=== PATIENT | female | born 1960 | race American Indian/Alaskan Native ===

== ENCOUNTER 2017-03-05 11:22 | Emergency (ER) | payer OTHER, BC ==
[2017-03-05 11:22] VITALS: BMI 28.3
--- NOTE | 2017-03-05 12:26 | C.PDOC ---
History Of Present Illness 56 y/o female recently diagnosed with rheumatoid arthritis on Mobic past few days presents to the ED with complaints of increased joint pain. Today pt noted elevated blood pressure while at work. Denies fever, chills, chest pain, difficulty breathing or any other complaints. Time Seen by Provider: 03/05/17 11:55 Chief Complaint (Nursing): High Blood Pressure History Per: Patient History/Exam Limitations: no limitations Onset/Duration Of Symptoms: Days Current Symptoms Are (Timing): Worse Severity: Mild Recent travel outside of the [place]: No Past Medical History Reviewed: Historical Data, Nursing Documentation, Vital Signs Vital Signs: Last Vital Signs Temp 98.1 F 03/05/17 12:45 Pulse 74 03/05/17 12:45 Resp 18 03/05/17 12:45 BP 169/99 H 03/05/17 12:45 Pulse Ox 98 03/05/17 13:41 - Medical History PMH: Anemia (with transfusion), Anxiety, Arthritis, Asthma (In the Past), Depression, Diabetes, Gastritis, HTN, Hypercholesterolemia, Post Traumatic Stress Disorder Surgical History: Endoscopy - [facility] Procedures CYSTOSCOPY NEC (12/14/13) DX ULTRASOUND-HEART (09/20/14) MONITORING NOS (12/02/97) INSPECTION OF ABDOMINAL WALL, PERC ENDO APPROACH (10/15/15) LAPAROSCOP LYSIS-PERITONEAL ADHES (12/30/13) LAPAROSCOP REMOVE OVARIES/TUBES (12/30/13) LAPAROSCOPIC ROBOTIC ASSISTED PROCEDURE (12/30/13) LEFT HEART CARDIAC CATH (06/24/14) LOW CERVICAL (12/02/97) LT HEART ANGIOCARDIOGRAM (06/24/14) MEDICATION MANAGEMENT (12/10/16) RELEASE LARGE INTESTINE, OPEN APPROACH (10/15/15) RELEASE PERITONEUM, OPEN APPROACH (10/15/15) REMOVAL OF EXTRALUMINAL DEVICE FROM STOMACH, OPEN APPROACH (10/15/15) RETROGRADE PYELOGRAM (12/14/13) UTERINE LES DESTRUCT NEC (12/02/97) Family History: States: Unknown Family Hx, Diabetes - Social History Hx Tobacco Use: No Hx Alcohol Use: No Hx Substance Use: No - Immunization History Hx Tetanus Toxoid Vaccination: No Hx Influenza Vaccination: Yes Hx Pneumococcal Vaccination: No Review Of Systems Except As Marked, All Systems Reviewed And Found Negative. Constitutional: Negative for: Fever, Chills Cardiovascular: Negative for: Chest Pain Respiratory: Negative for: Shortness of Breath Musculoskeletal: Positive for: Other (increased generalized joint pain) Physical Exam - Physical Exam Appears: Non-toxic, No Acute Distress Skin: Warm, Dry, No Diaphoretic, No Rash Head: Atraumatic, Normacephalic Neck: Normal, Normal ROM, Supple Chest: Symmetrical Cardiovascular: Rhythm Regular, No Murmur Respiratory: Normal Breath Sounds, No Rales, No Rhonchi, No Wheezing Gastrointestinal/Abdominal: Normal Exam, Soft, No Tenderness Extremity: Normal ROM Neurological/Psych: Oriented x3, Normal Speech, Normal Cognition ED Course And Treatment O2 Sat by Pulse Oximetry: 98 (room air) Pulse Ox Interpretation: Normal Progress Note: Plan: EKG, prednisone. Discharged home with Medrol dose pack. Instructed to follow up with PMD in 2-3 days. Medical Decision Making Medical Decision Making: sympt c/w flair of RA pt only on mobic seeing a rhum but did not start on DMD Plan after discussion with pt short course of steroids early f/u PCP Disposition Counseled Patient/Family Regarding: Diagnosis, Need For Followup - Disposition Referrals: Sacha Lock [Staff Provider] - Disposition: HOME/ ROUTINE Disposition Time: 12:23 Condition: GOOD Prescriptions: Methylprednisolone [Medrol Dose Pack (21 tabs)] 1 kit PO . DIRECTED #21 packet Instructions: Rheumatoid Arthritis (ED) Forms: Work Excuse - Clinical Impression Clinical Impression: Rheumatoid arthritis flare - Scribe Statement The provider has reviewed the documentation as recorded by the Hima Guerrero Provider Attestation: All medical record entries made by the Hima were at my direction and personally dictated by me. I have reviewed the chart and agree that the record accurately reflects my personal performance of the history, physical exam, medical decision making, and the department course for this patient. I have also personally directed, reviewed, and agree with the discharge instructions and disposition.
[2017-03-05 13:11] VITALS: BP 169/99; PULSE 74; RESP 18; TEMP 98.1
[2017-03-05 13:39] VITALS: O2SAT 98
== END 2017-03-05 12:45 | disposition home or self-care (01) ==
LOC: C.ER 11:22
DX: M06.9 Rheumatoid arthritis, unspecified (principal)

== ENCOUNTER 2017-03-19 15:14 | Inpatient (IN) | payer OTHER, BC ==
[2017-03-19 15:14] VITALS: BMI 28.3
[2017-03-19] MEDS ORDERED: Aspirin 325 mg EC Tablets PO STA (15:52)
[2017-03-19] MEDS ORDERED: Alum-Mag Hydrox-Simethicone Susp (30 mL) PO STA (15:53)
[2017-03-19] MEDS ORDERED: Aluminum Hydroxide/Magnesium Hydroxide Susp (30 mL) ONE (15:58)
[2017-03-19 16:21] LABS: BASO % 0.7 % (0.0-2.0); EOS # 0.3 K/uL (0.0-0.7); EOS % 4.4 % (0.0-4.0); HEMOGLOBIN 12.3 g/dL (11.0-16.0); LYMPH # 1.5 K/uL (1.0-4.3); LYMPH % 25.7 % (20.0-40.0); MEAN CORPUSCULAR HEMOGLOBIN 26.9 pg (27.0-31.0); MEAN CORPUSCULAR HGB CONC 32.3 g/dL (33.0-37.0); MEAN PLATELET VOLUME 8.5 fL (7.2-11.7); MONO # 0.5 K/uL (0.0-0.8); MONO % 9.2 % (0.0-10.0); NEUT # 3.6 K/uL (1.8-7.0); RBC 4.56 Mil/uL (3.80-5.20); RED CELL DISTRIBUTION WIDTH 14.5 % (11.5-14.5); WHITE BLOOD COUNT 5.9 K/uL (4.8-10.8)
[2017-03-19 16:23] LABS: MEAN CELL VOLUME 83.4 fL (81.0-99.0)
[2017-03-19 16:29] LABS: INR 0.9; PROTHROMBIN TIME 10.2 SECONDS (9.7-12.2)
[2017-03-19 16:47] LABS: AST/SGOT 28 U/L (14-36); GFR AFRICAN-AMERICAN > 60; GFR NON-AFRICAN AMERICAN > 60
[2017-03-19 16:48] LABS: ALB/GLOB RATIO 1.1 (1.0-2.1); ALT/SGPT 22 U/L (9-52); BLOOD UREA NITROGEN 15 mg/dL (7-17); CALCIUM 9.1 mg/dl (8.6-10.4); LIPASE 71 U/L (23-300)
[2017-03-19 16:59] LABS: CK-MB 0.55 ng/mL (0.0-3.38)
--- NOTE | 2017-03-19 17:28 | RAD ---
PROCEDURE: CHEST RADIOGRAPH, 1 VIEW HISTORY: chest pain COMPARISON: 11/23/2016 FINDINGS: LUNGS: Clear. PLEURA: No pneumothorax or pleural fluid seen. CARDIOVASCULAR: Normal. OSSEOUS STRUCTURES: No significant abnormalities. VISUALIZED UPPER ABDOMEN: Normal. OTHER FINDINGS: None. IMPRESSION: No active disease.
[2017-03-19] MEDS ORDERED: (Novolin R) Insulin Human Regular 100 units/ml vial IV ONE (18:35)
--- NOTE | 2017-03-19 19:29 | C.PDOC ---
Time Seen by Provider: 03/19/17 15:41 Chief Complaint (Nursing): Chest Pain History Per: Patient Onset/Duration Of Symptoms: Hrs (since this morning) Current Symptoms Are (Timing): Still Present Severity: Moderate Quality: Burning, Pressure, "Pain" Modifying Factors: Other Indicated Below Alleviating Factors: None Additional History Per: Prior Records Past Medical History Reviewed: Historical Data, Nursing Documentation, Vital Signs Vital Signs: Last Vital Signs Temp 97.8 F 03/19/17 15:32 Pulse 83 03/19/17 15:32 Resp 17 03/19/17 15:32 BP 174/97 H 03/19/17 15:32 Pulse Ox 99 03/19/17 15:32 - Medical History PMH: Anemia (with transfusion), Anxiety, Arthritis, Asthma (In the Past), Depression, Diabetes, Gastritis, HTN, Hypercholesterolemia, Post Traumatic Stress Disorder, TIA (Questionable AUG 2014) Surgical History: Coronary Stent (2), Endoscopy - [facility] Procedures CYSTOSCOPY NEC (12/14/13) DX ULTRASOUND-HEART (09/20/14) MONITORING NOS (12/02/97) INSPECTION OF ABDOMINAL WALL, PERC ENDO APPROACH (10/15/15) LAPAROSCOP LYSIS-PERITONEAL ADHES (12/30/13) LAPAROSCOP REMOVE OVARIES/TUBES (12/30/13) LAPAROSCOPIC ROBOTIC ASSISTED PROCEDURE (12/30/13) LEFT HEART CARDIAC CATH (06/24/14) LOW CERVICAL (12/02/97) LT HEART ANGIOCARDIOGRAM (06/24/14) MEDICATION MANAGEMENT (12/10/16) RELEASE LARGE INTESTINE, OPEN APPROACH (10/15/15) RELEASE PERITONEUM, OPEN APPROACH (10/15/15) REMOVAL OF EXTRALUMINAL DEVICE FROM STOMACH, OPEN APPROACH (10/15/15) RETROGRADE PYELOGRAM (12/14/13) UTERINE LES DESTRUCT NEC (12/02/97) Family History: States: Unknown Family Hx, Diabetes - Social History Hx Tobacco Use: No Hx Alcohol Use: No Hx Substance Use: No - Immunization History Hx Tetanus Toxoid Vaccination: No Hx Influenza Vaccination: Yes (2015) Hx Pneumococcal Vaccination: No Review Of Systems Except As Marked, All Systems Reviewed And Found Negative. Constitutional: Negative for: Fever, Weakness Cardiovascular: Positive for: Chest Pain Respiratory: Negative for: Shortness of Breath, Hemoptysis Gastrointestinal: Negative for: Vomiting, Abdominal Pain Musculoskeletal: Negative for: Neck Pain, Back Pain, Leg Pain Skin: Negative for: Rash Neurological: Negative for: Weakness, Numbness, Seizures Physical Exam - Physical Exam Appears: Non-toxic, No Acute Distress Skin: Normal Color, Warm, Dry, No Rash Head: Atraumatic, Normacephalic Eye(s): bilateral: PERRL, EOMI Neck: Normal ROM, Supple Chest: Symmetrical, No Deformity Cardiovascular: Rhythm Regular Respiratory: Normal Breath Sounds, No Accessory Muscle Use Gastrointestinal/Abdominal: Soft, No Tenderness Back: No CVA Tenderness Extremity: Normal ROM, No Calf Tenderness Neurological/Psych: Oriented x3, Normal Motor, Normal Sensation ED Course And Treatment - Laboratory Results Result Diagrams: 03/19/17 16:16 03/19/17 16:16 Lab Interpretation: Abnormal Interpretation Of Abnormal: Hyperglycemia ECG: Interpreted By Me, Viewed By Me ECG Rhythm: Sinus Rhythm, Nonspecific Changes ECG Interpretation: Abnormal Interpretation Of ECG: LVH Rate From EC O2 Sat by Pulse Oximetry: 99 Pulse Ox Interpretation: Normal - Radiology CXR: Viewed By Me, Read By Radiologist CXR Interpretation: Yes: No Acute Disease - Physician Consult Information Physician Contacted: Srikanth Winston (PMD) Outcome Of Conversation: He states that he will be away and wants pt admitted on Dr. Liu's service. Progress - Interventions Interventions:: Observation, Oxygen - Medications Administered Oral: Antacid, Aspirin Intravenous: H-2 hoang - Data Reviewed Data Reviewed: Lab, Diagnostic imaging, EKG, Old records - Patient Status Patient status: Partially improved - Continuity of Care Discussed patient case with:: Patient, ED Nurse, PMD Discussed pt. case with outreach consultant/specialty: Cardiology Disposition Discussed With : Mariano Oakes Comment: He accepted pt on his service. Counseled Patient/Family Regarding: Studies Performed, Diagnosis - Disposition Disposition: HOSPITALIZED Disposition Time: 19:34 Condition: FAIR - POA Present On Arrival: Poor Glycemic Control - Clinical Impression Clinical Impression: Chest pain, Uncontrolled diabetes mellitus
[2017-03-19] MEDS ORDERED: (Novolin R) Insulin Human Regular 100 units/ml vial ONE (20:27)
[2017-03-19] MEDS ORDERED: Insulin Detemir 100 units/ml Vial (Levemir) SC SCH (22:00)
[2017-03-19] MEDS ORDERED: (Novolin R) Insulin Human Regular 100 units/ml vial SC SCH (22:00)
[2017-03-20] MEDS ORDERED: (Novolog Mix 70/30) Insulin Aspart/Insulin Aspar 100 units/ml SC SCH (07:30)
[2017-03-20 08:19] LABS: ALBUMIN 3.4 g/dL (3.5-5.0)
[2017-03-20 08:21] LABS: GFR AFRICAN-AMERICAN > 60; GFR NON-AFRICAN AMERICAN > 60
[2017-03-20 08:22] LABS: ALB/GLOB RATIO 1.1 (1.0-2.1); ALT/SGPT 20 U/L (9-52); AST/SGOT 18 U/L (14-36); BLOOD UREA NITROGEN 15 mg/dL (7-17)
[2017-03-20 08:23] LABS: HDL CHOLESTEROL 35 mg/dL (30-70)
[2017-03-20 08:33] LABS: LDL CHOLESTEROL 141 mg/dL (0-129)
[2017-03-20] MEDS: (Novolog) Insulin Aspart, Recombinant 100 u/ml 10 ml vial SC SCH ×7 (08:35→22:17)
--- NOTE | 2017-03-20 11:22 | CARD ---
APPROVED REPORT EKG Measurement Heart [id number] <Conclusion> Normal sinus rhythm Voltage criteria for left ventricular hypertrophy Abnormal ECG
[2017-03-20] MEDS: Enoxaparin 40 mg Syringe SC SCH (11:38)
--- NOTE | 2017-03-20 16:14 | CP.PCM.HP ---
History of Present Illness - History of Present Illness History of Present Illness: 56 y/o female h/o HTN, DM presented with retrosternal c/p burning in character No SOb, dizziness No cough, fever or chills Present on Admission - Present on Admission Any Indicators Present on Admission: No History of DVT/PE: No History of Uncontrolled Diabetes: Yes Urinary Catheter: No Decubitus Ulcer Present: No Review of Systems - Cardiovascular Cardiovascular: Chest Pain Past Patient History - Infectious Disease Hx of Infectious Diseases: None (Htn, DM, esophagitis, Depression) - Tetanus Immunizations Tetanus Immunization: Unknown - Past Medical History & Family History Past Medical History?: Yes - Past Social History Smoking Status: Never Smoked - CARDIAC Hx Cardiac Disorders: Yes Hx Hypercholesterolemia: Yes Hx Hypertension: Yes - PULMONARY Hx Respiratory Disorders: Yes Hx Asthma: Yes (In the Past) - NEUROLOGICAL Hx Neurological Disorder: Yes Hx Transient Ischemic Attacks (TIA): Yes (Questionable AUG 2014) - HEENT Hx HEENT Problems: No - RENAL Hx Chronic Kidney Disease: No - ENDOCRINE/METABOLIC Hx Endocrine Disorders: Yes (SEE COMMENT) Hx Diabetes Mellitus Type 1: Yes Hx Systemic Lupus Erythematosus: Yes Other/Comment: thyroid nodule right side - HEMATOLOGICAL/ONCOLOGICAL Hx Blood Disorders: Yes Hx Anemia: Yes (with transfusion) - INTEGUMENTARY Hx Dermatological Problems: No - MUSCULOSKELETAL/RHEUMATOLOGICAL Hx Musculoskeletal Disorders: Yes Hx Arthritis: Yes Hx Falls: No - GASTROINTESTINAL Hx Gastrointestinal Disorders: Yes Hx Gastritis: Yes - GENITOURINARY/GYNECOLOGICAL Hx Genitourinary Disorders: No Hx Sexually Transmitted Disorders: No - PSYCHIATRIC Hx Psychophysiologic Disorder: Yes Hx Anxiety: Yes Hx Depression: Yes Hx Post Traumatic Stress Disorder: Yes Hx Substance Use: No - SURGICAL HISTORY Hx Surgeries: Yes Hx Coronary Stent: Yes (2) - ANESTHESIA Hx Anesthesia: Yes Hx Anesthesia Reactions: Yes (difficulty awakening,combative) Hx Malignant Hyperthermia: No Has any member of the family had a problem w/ anesthesia?: No Meds Allergies/Adverse Reactions: Allergies Allergy/AdvReac Type Severity Reaction Status Date / Time acetaminophen [From Percocet] AdvReac Intermediate VOMITING Verified 03/05/17 11 :27 oxycodone HCl [From Percocet] AdvReac Intermediate VOMITING Verified 03/19/17 15 :31 Physical Exam - Constitutional Appears: Well - Head Exam Head Exam: ATRAUMATIC, NORMAL INSPECTION, NORMOCEPHALIC - Eye Exam Eye Exam: EOMI, Normal appearance (unrearkable) - Neck Exam Neck exam: Positive for: Normal Inspection - Respiratory Exam Respiratory Exam: NORMAL BREATHING PATTERN - Cardiovascular Exam Cardiovascular Exam: REGULAR RHYTHM - GI/Abdominal Exam GI & Abdominal Exam: Soft - Extremities Exam Extremities exam: Positive for: normal inspection Results - Vital Signs Recent Vital Signs: Last Vital Signs Temp 98.1 F 03/20/17 15:59 Pulse 83 03/20/17 15:59 Resp 18 03/20/17 15:59 BP 132/82 03/20/17 15:59 Pulse Ox 97 03/20/17 15:59 - Labs Result Diagrams: 03/19/17 16:16 03/20/17 07:52 Labs: Laboratory Results - last 24 hr 03/19/17 03/20/17 03/20/17 21:25 06:26 07:52 Sodium 139 Potassium 3.8 Chloride 100 Carbon Dioxide 31 H Anion Gap 12 BUN 15 Creatinine 0.8 Est GFR ( Amer) > 60 Est GFR (Non-Af Amer) > 60 POC Glucose (mg/dL) 277 H 300 H Random Glucose 333 H Hemoglobin A1c Calcium 9.0 Total Bilirubin 0.6 AST 18 ALT 20 Alkaline Phosphatase 103 Troponin I Total Protein 6.6 Albumin 3.4 L Globulin 3.2 Albumin/Globulin Ratio 1.1 Triglycerides 217 H Cholesterol 223 H LDL Cholesterol Direct 141 H HDL Cholesterol 35 TSH 3rd Generation 0.28 L 03/20/17 03/20/17 03/20/17 07:52 11:11 15:10 Sodium Potassium Chloride Carbon Dioxide Anion Gap BUN Creatinine Est GFR ( Amer) Est GFR (Non-Af Amer) POC Glucose (mg/dL) 402 H* Random Glucose Hemoglobin A1c 13.2 H Calcium Total Bilirubin AST ALT Alkaline Phosphatase Troponin I < 0.0120 Total Protein Albumin Globulin Albumin/Globulin Ratio Triglycerides Cholesterol LDL Cholesterol Direct HDL Cholesterol TSH 3rd Generation Assessment & Plan - Assessment and Plan (Free Text) Assessment: Chest pain , VT was R/O HTN Uncontrolled DM Plan: Cont. current Med. Endo and GI consult NB. Dictation system is down which limits my narrative of this H&P EKGs and labs were reviewed
--- NOTE | 2017-03-20 18:34 | CP.PCM.CON ---
History of Present Illness - History of Present Illness History of Present Illness: CC: Chest pain HPI: year old woman admitted with burning chest pain and anorexia. On Dexilant for chronic reflux. EGD in [place] by Dr Valerio Jun 2016 showed esophagitis( [place]) on exam but not present on biopsies. Gastric emptying study normal in November 2016. Frequent episodes of atypical chest pains over the years. Review of Systems - Constitutional Constitutional: Anorexia, Daytime Sleepiness - Cardiovascular Cardiovascular: Chest Pain, Chest Pain at Rest. absent: Dyspnea - Respiratory Respiratory: absent: Cough - Gastrointestinal Gastrointestinal: Heartburn. absent: Change in Stool Character, Dysphagia, Melena - Genitourinary Genitourinary: absent: Difficulty Urinating Past Patient History - Infectious Disease Hx of Infectious Diseases: None (Htn, DM, esophagitis, Depression) - Tetanus Immunizations Tetanus Immunization: Unknown - Past Medical History & Family History Past Medical History?: Yes - Past Social History Smoking Status: Never Smoked - CARDIAC Hx Cardiac Disorders: Yes Hx Hypercholesterolemia: Yes Hx Hypertension: Yes - PULMONARY Hx Respiratory Disorders: Yes Hx Asthma: Yes (In the Past) - NEUROLOGICAL Hx Neurological Disorder: Yes Hx Transient Ischemic Attacks (TIA): Yes (Questionable AUG 2014) - HEENT Hx HEENT Problems: No - RENAL Hx Chronic Kidney Disease: No - ENDOCRINE/METABOLIC Hx Endocrine Disorders: Yes (SEE COMMENT) Hx Diabetes Mellitus Type 1: Yes Hx Systemic Lupus Erythematosus: Yes Other/Comment: thyroid nodule right side - HEMATOLOGICAL/ONCOLOGICAL Hx Blood Disorders: Yes Hx Anemia: Yes (with transfusion) - INTEGUMENTARY Hx Dermatological Problems: No - MUSCULOSKELETAL/RHEUMATOLOGICAL Hx Musculoskeletal Disorders: Yes Hx Arthritis: Yes Hx Falls: No - GASTROINTESTINAL Hx Gastrointestinal Disorders: Yes Hx Gastritis: Yes - GENITOURINARY/GYNECOLOGICAL Hx Genitourinary Disorders: No Hx Sexually Transmitted Disorders: No - PSYCHIATRIC Hx Psychophysiologic Disorder: Yes Hx Anxiety: Yes Hx Depression: Yes Hx Post Traumatic Stress Disorder: Yes Hx Substance Use: No - SURGICAL HISTORY Hx Surgeries: Yes Hx Coronary Stent: Yes (2) - ANESTHESIA Hx Anesthesia: Yes Hx Anesthesia Reactions: Yes (difficulty awakening,combative) Hx Malignant Hyperthermia: No Has any member of the family had a problem w/ anesthesia?: No Meds Allergies/Adverse Reactions: Allergies Allergy/AdvReac Type Severity Reaction Status Date / Time acetaminophen [From Percocet] AdvReac Intermediate VOMITING Verified 03/05/17 11 :27 oxycodone HCl [From Percocet] AdvReac Intermediate VOMITING Verified 03/19/17 15 :31 - Medications Medications: Current Medications Amlodipine Besylate (Norvasc) 5 mg PO DAILY [facility] Last Admin: 03/20/17 11:39 Dose: 5 mg Enoxaparin Sodium (Lovenox) 40 mg SC DAILY [facility] Last Admin: 03/20/17 11:38 Dose: 40 mg Insulin Aspart (Novolog) 0 unit SC [facility] PRN Reason: Protocol Last Admin: 03/20/17 17:08 Dose: Not Given Insulin Aspart (Novolog) 20 unit SC AC [facility] Last Admin: 03/20/17 17:08 Dose: 20 unit Insulin Detemir (Levemir) 44 unit SC HS [facility] Lorazepam (Ativan) 0.5 mg PO COUNTS INCLUDE 234 BEDS AT [facility] Last Admin: 03/20/17 11:38 Dose: 0.5 mg Losartan Potassium (Cozaar) 100 mg PO DAILY [facility] Last Admin: 03/20/17 11:38 Dose: 100 mg Pneumococcal Polyvalent Vaccine (Pneumovax 23 Vaccine) 0.5 ml IM .ONCE ONE Stop: 03/22/17 10:01 Pregabalin (Lyrica) 100 mg PO [facility] Last Admin: 03/19/17 22:15 Dose: 100 mg Rosuvastatin Calcium (Crestor) 5 mg PO [facility] Last Admin: 03/19/17 22:15 Dose: 5 mg Zolpidem Tartrate (Ambien) 5 mg PO [facility] Last Admin: 03/19/17 22:15 Dose: 5 mg Physical Exam - Constitutional Appears: Well, No Acute Distress Additional comments: Lethargic - Head Exam Head Exam: ATRAUMATIC, NORMOCEPHALIC - Eye Exam Eye Exam: Normal appearance. absent: Scleral icterus - ENT Exam ENT Exam: Normal Exam - Neck Exam Neck exam: Positive for: Normal Inspection. Negative for: Thyromegaly - Respiratory Exam Respiratory Exam: Clear to Auscultation Bilateral - Cardiovascular Exam Cardiovascular Exam: REGULAR RHYTHM - GI/Abdominal Exam GI & Abdominal Exam: Soft. absent: Distended, Guarding, Mass, Organomegaly, Tenderness - Extremities Exam Extremities exam: Positive for: normal inspection - Neurological Exam Additional comments: Lethargic but arousable - Skin Skin Exam: Normal Color Results - Vital Signs Recent Vital Signs: Last Vital Signs Temp 98.1 F 03/20/17 15:59 Pulse 83 03/20/17 15:59 Resp 18 03/20/17 15:59 BP 132/82 03/20/17 15:59 Pulse Ox 97 03/20/17 15:59 - Labs Result Diagrams: 03/19/17 16:16 03/20/17 07:52 Labs: Laboratory Results - last 24 hr 03/19/17 03/20/17 03/20/17 21:25 06:26 07:52 Sodium 139 Potassium 3.8 Chloride 100 Carbon Dioxide 31 H Anion Gap 12 BUN 15 Creatinine 0.8 Est GFR ( Amer) > 60 Est GFR (Non-Af Amer) > 60 POC Glucose (mg/dL) 277 H 300 H Random Glucose 333 H Hemoglobin A1c Calcium 9.0 Total Bilirubin 0.6 AST 18 ALT 20 Alkaline Phosphatase 103 Troponin I Total Protein 6.6 Albumin 3.4 L Globulin 3.2 Albumin/Globulin Ratio 1.1 Triglycerides 217 H Cholesterol 223 H LDL Cholesterol Direct 141 H HDL Cholesterol 35 TSH 3rd Generation 0.28 L 03/20/17 03/20/17 03/20/17 07:52 11:11 15:10 Sodium Potassium Chloride Carbon Dioxide Anion Gap BUN Creatinine Est GFR ( Amer) Est GFR (Non-Af Amer) POC Glucose (mg/dL) 402 H* Random Glucose Hemoglobin A1c 13.2 H Calcium Total Bilirubin AST ALT Alkaline Phosphatase Troponin I < 0.0120 Total Protein Albumin Globulin Albumin/Globulin Ratio Triglycerides Cholesterol LDL Cholesterol Direct HDL Cholesterol TSH 3rd Generation 03/20/17 16:34 Sodium Potassium Chloride Carbon Dioxide Anion Gap BUN Creatinine Est GFR ( Amer) Est GFR (Non-Af Amer) POC Glucose (mg/dL) 185 H Random Glucose Hemoglobin A1c Calcium Total Bilirubin AST ALT Alkaline Phosphatase Troponin I Total Protein Albumin Globulin Albumin/Globulin Ratio Triglycerides Cholesterol LDL Cholesterol Direct HDL Cholesterol TSH 3rd Generation Assessment & Plan (1) Chest pain Assessment and Plan: Atypical chest pain, likely emotional/functional pain, but nonetheless recommend covering for reflux with PPI. Cardiology to decide on whether further workup for chest pain is needed Advance diet as tolerated. Status: Acute
[2017-03-20] MEDS: Insulin Detemir 100 units/ml Vial (Levemir) SC SCH (22:16)
[2017-03-21] MEDS: (Novolog) Insulin Aspart, Recombinant 100 u/ml 10 ml vial SC SCH ×7 (08:11→21:26)
[2017-03-21] MEDS: Enoxaparin 40 mg Syringe SC SCH (09:28)
--- NOTE | 2017-03-21 11:45 | CP.PCM.PN ---
Subjective - Date & Time of Evaluation Date of Evaluation: 03/21/17 Time of Evaluation: 11:20 - Subjective Subjective: F/u CP. Pt is sleepy. Reports feeling better. No CP Denies CP, SOB, fever, chills, SZ, LOC, LOVE, cough, hematuria, hemoptysis Objective - Vital Signs/Intake and Output Vital Signs (last 24 hours): Temp Pulse Resp BP Pulse Ox 98.5 F 74 20 155/85 H 96 03/21/17 04:48 03/21/17 08:31 03/21/17 04:48 03/21/17 04:48 03/20/17 23:40 Intake and Output: 03/21/17 03/21/17 06:59 18:59 Intake Total 300 Balance 300 - Medications Medications: Current Medications Amlodipine Besylate (Norvasc) 5 mg PO DAILY [facility] Last Admin: 03/21/17 09:28 Dose: 5 mg Enoxaparin Sodium (Lovenox) 40 mg SC DAILY [facility] Last Admin: 03/21/17 09:28 Dose: 40 mg Insulin Aspart (Novolog) 0 unit SC [facility] PRN Reason: Protocol Last Admin: 03/21/17 08:11 Dose: Not Given Insulin Aspart (Novolog) 20 unit SC AC [facility] Last Admin: 03/21/17 08:15 Dose: 20 unit Insulin Detemir (Levemir) 44 unit SC [facility] Last Admin: 03/20/17 22:16 Dose: 44 unit Lorazepam (Ativan) 0.5 mg PO [facility] Last Admin: 03/21/17 09:28 Dose: 0.5 mg Losartan Potassium (Cozaar) 100 mg PO DAILY [facility] Last Admin: 03/21/17 09:28 Dose: 100 mg Pneumococcal Polyvalent Vaccine (Pneumovax 23 Vaccine) 0.5 ml IM .ONCE ONE Stop: 03/22/17 10:01 Pregabalin (Lyrica) 100 mg PO [facility] Last Admin: 03/20/17 22:16 Dose: 100 mg Rosuvastatin Calcium (Crestor) 5 mg PO [facility] Last Admin: 03/20/17 22:16 Dose: 5 mg Zolpidem Tartrate (Ambien) 5 mg PO [facility] Last Admin: 03/20/17 22:16 Dose: 5 mg - Labs Labs: 03/20/17 07:52 PT 10.2 SECONDS (9.7-12.2) 03/19/17 16:16 INR 0.9 03/19/17 16:16 APTT 33 SECONDS (21-34) 03/19/17 16:16 - Constitutional Appears: Well - Neck Exam Neck Exam: absent: Tenderness - Respiratory Exam Respiratory Exam: Clear to Ausculation Bilateral - Cardiovascular Exam Cardiovascular Exam: RRR - GI/Abdominal Exam GI & Abdominal Exam: Normal Bowel Sounds - Neurological Exam Neurological Exam: Alert, Awake, Oriented x3 Assessment and Plan (1) Chest pain Assessment & Plan: Atypical. Consider GERD. But is feeling better. Consider PPI. Consider outpatient esoph manometry. Status: Acute (2) Uncontrolled diabetes mellitus Status: Acute (3) Abdominal pain Assessment & Plan: GAstritis. DM. Status: Acute (4) Anemia Status: Acute (5) Depression Status: Acute
--- NOTE | 2017-03-21 14:49 | CP.PCM.PN ---
Subjective - Date & Time of Evaluation Date of Evaluation: 03/21/17 Time of Evaluation: 14:47 - Subjective Subjective: no Chest pain or SOB Seen by GI today and yesterday Was upset and received Ativan Objective - Vital Signs/Intake and Output Vital Signs (last 24 hours): Temp Pulse Resp BP Pulse Ox 98.5 F 74 20 155/85 H 96 03/21/17 04:48 03/21/17 08:31 03/21/17 04:48 03/21/17 04:48 03/20/17 23:40 Intake and Output: 03/21/17 03/21/17 06:59 18:59 Intake Total 300 Balance 300 - Medications Medications: Current Medications Amlodipine Besylate (Norvasc) 5 mg PO DAILY [facility] Last Admin: 03/21/17 09:28 Dose: 5 mg Enoxaparin Sodium (Lovenox) 40 mg SC DAILY [facility] Last Admin: 03/21/17 09:28 Dose: 40 mg Insulin Aspart (Novolog) 0 unit SC [facility] PRN Reason: Protocol Last Admin: 03/21/17 12:05 Dose: Not Given Insulin Aspart (Novolog) 20 unit SC AC [facility] Last Admin: 03/21/17 12:05 Dose: 20 unit Insulin Detemir (Levemir) 44 unit SC HS [facility] Last Admin: 03/20/17 22:16 Dose: 44 unit Lorazepam (Ativan) 0.5 mg PO [facility] Last Admin: 03/21/17 09:28 Dose: 0.5 mg Losartan Potassium (Cozaar) 100 mg PO DAILY [facility] Last Admin: 03/21/17 09:28 Dose: 100 mg Pneumococcal Polyvalent Vaccine (Pneumovax 23 Vaccine) 0.5 ml IM .ONCE ONE Stop: 03/22/17 10:01 Pregabalin (Lyrica) 100 mg PO [facility] Last Admin: 03/20/17 22:16 Dose: 100 mg Rosuvastatin Calcium (Crestor) 5 mg PO [facility] Last Admin: 03/20/17 22:16 Dose: 5 mg Zolpidem Tartrate (Ambien) 5 mg PO HS [facility] Last Admin: 03/20/17 22:16 Dose: 5 mg - Labs Labs: 03/20/17 07:52 PT 10.2 SECONDS (9.7-12.2) 03/19/17 16:16 INR 0.9 03/19/17 16:16 APTT 33 SECONDS (21-34) 03/19/17 16:16 - Head Exam Head Exam: ATRAUMATIC, NORMAL INSPECTION, NORMOCEPHALIC - Eye Exam Pupil Exam: NORMAL ACCOMODATION - Respiratory Exam Respiratory Exam: NORMAL BREATHING PATTERN - Cardiovascular Exam Cardiovascular Exam: REGULAR RHYTHM - GI/Abdominal Exam GI & Abdominal Exam: Normal Bowel Sounds - Extremities Exam Extremities Exam: Normal Inspection Assessment and Plan - Assessment and Plan (Free Text) Assessment: chest pain , DC ruled out HTN Uncontrolled DM Depression GERD Plan: Cont. Amlodipine Besylate (Norvasc) 5 mg PO DAILY [facility] Last Admin: 03/21/17 09:28 Dose: 5 mg Enoxaparin Sodium (Lovenox) 40 mg SC DAILY [facility] Last Admin: 03/21/17 09:28 Dose: 40 mg Insulin Aspart (Novolog) 0 unit SC [facility] PRN Reason: Protocol Last Admin: 03/21/17 12:05 Dose: Not Given Insulin Aspart (Novolog) 20 unit SC [facility] Last Admin: 03/21/17 12:05 Dose: 20 unit Insulin Detemir (Levemir) 44 unit SC [facility] Last Admin: 03/20/17 22:16 Dose: 44 unit Lorazepam (Ativan) 0.5 mg PO [facility] Last Admin: 03/21/17 09:28 Dose: 0.5 mg Losartan Potassium (Cozaar) 100 mg PO DAILY [facility] Last Admin: 03/21/17 09:28 Dose: 100 mg Pneumococcal Polyvalent Vaccine (Pneumovax 23 Vaccine) 0.5 ml IM .ONCE ONE Stop: 03/22/17 10:01 Pregabalin (Lyrica) 100 mg PO [facility] Last Admin: 03/20/17 22:16 Dose: 100 mg Rosuvastatin Calcium (Crestor) 5 mg PO [facility] Last Admin: 03/20/17 22:16 Dose: 5 mg Zolpidem Tartrate (Ambien) 5 mg PO [facility] Last Admin: 03/20/17 22:16 Dose: 5 mg D/C tele
[2017-03-21 16:09] VITALS: TEMP 98.3; O2SAT 95
[2017-03-21] MEDS: Insulin Detemir 100 units/ml Vial (Levemir) SC SCH (21:38)
[2017-03-22] MEDS: (Novolog) Insulin Aspart, Recombinant 100 u/ml 10 ml vial SC SCH ×4 (07:26→12:57)
[2017-03-22 08:12] VITALS: BP 150/92; PULSE 92; RESP 20
[2017-03-22] MEDS: Enoxaparin 40 mg Syringe SC SCH (09:20)
[2017-03-22] MEDS ORDERED: Pneumococcal 23-Valent Vaccine IM ONE (10:00)
--- NOTE | 2017-03-22 11:47 | CP.PCM.DIS ---
Provider - Provider Date of Admission: 03/21/17 16:11 Attending physician: Mariano Oakes MD Primary care physician: Champ Consults: Tepler. Pierce Time Spent in preparation of Discharge (in minutes): 40 Diagnosis - Discharge Diagnosis (1) Chest pain Status: Acute (2) Uncontrolled diabetes mellitus Status: Acute Hospital Course - Lab Results Lab Results: Most Recent Lab Values WBC 5.9 K/uL (4.8-10.8) 03/19/17 16:16 RBC 4.56 Mil/uL (3.80-5.20) 03/19/17 16:16 Hgb 12.3 g/dL (11.0-16.0) 03/19/17 16:16 Hct 38.0 % (34.0-47.0) 03/19/17 16:16 MCV 83.4 fL (81.0-99.0) D 03/19/17 16:16 MCH 26.9 pg (27.0-31.0) L 03/19/17 16:16 MCHC 32.3 g/dL (33.0-37.0) L 03/19/17 16:16 RDW 14.5 % (11.5-14.5) 03/19/17 16:16 Plt Count 229 K/uL (130-400) 03/19/17 16:16 MPV 8.5 fL (7.2-11.7) 03/19/17 16:16 Neut % (Auto) 60.0 % (50.0-75.0) 03/19/17 16:16 Lymph % (Auto) 25.7 % (20.0-40.0) 03/19/17 16:16 [place] % (Auto) 9.2 % (0.0-10.0) 03/19/17 16:16 Eos % (Auto) 4.4 % (0.0-4.0) H 03/19/17 16:16 Baso % (Auto) 0.7 % (0.0-2.0) 03/19/17 16:16 Neut # 3.6 K/uL (1.8-7.0) 03/19/17 16:16 Lymph # 1.5 K/uL (1.0-4.3) 03/19/17 16:16 [place] # 0.5 K/uL (0.0-0.8) 03/19/17 16:16 Eos # 0.3 K/uL (0.0-0.7) 03/19/17 16:16 Baso # 0.0 K/uL (0.0-0.2) 03/19/17 16:16 PT 10.2 SECONDS (9.7-12.2) 03/19/17 16:16 INR 0.9 03/19/17 16:16 APTT 33 SECONDS (21-34) 03/19/17 16:16 Sodium 139 mmol/L (132-148) 03/20/17 07:52 Potassium 3.8 mmol/L (3.6-5.2) 03/20/17 07:52 Chloride 100 mmol/L (98-107) 03/20/17 07:52 Carbon Dioxide 31 mmol/L (22-30) H 03/20/17 07:52 Anion Gap 12 (10-20) 03/20/17 07:52 BUN 15 mg/dL (7-17) 03/20/17 07:52 Creatinine 0.8 MG/DL (0.7-1.2) 03/20/17 07:52 Est GFR ( Amer) > 60 03/20/17 07:52 Est GFR (Non-Af Amer) > 60 03/20/17 07:52 POC Glucose (mg/dL) 195 mg/dL (65-110) H 03/22/17 06:32 Random Glucose 333 mg/dL (65-105) H 03/20/17 07:52 Hemoglobin A1c 13.2 % (4.2-6.5) H 03/20/17 07:52 Calcium 9.0 mg/dl (8.6-10.4) 03/20/17 07:52 Total Bilirubin 0.6 mg/dL (0.2-1.3) 03/20/17 07:52 AST 18 U/L (14-36) 03/20/17 07:52 ALT 20 U/L (9-52) 03/20/17 07:52 Alkaline Phosphatase 103 U/L (38-126) 03/20/17 07:52 Total Creatine Kinase 129 U/L (30-135) 03/19/17 16:16 CK-MB (Mass) 0.55 ng/mL (0.0-3.38) 03/19/17 16:16 Troponin I < 0.0120 ng/mL (0.00-0.120) 03/20/17 15:10 Troponin I, Quant < 0.0120 ng/mL (0.00-0.120) 03/19/17 16:16 Total Protein 6.6 g/dL (6.3-8.3) 03/20/17 07:52 Albumin 3.4 g/dL (3.5-5.0) L 03/20/17 07:52 Globulin 3.2 gm/dL (2.2-3.9) 03/20/17 07:52 Albumin/Globulin Ratio 1.1 (1.0-2.1) 03/20/17 07:52 Triglycerides 217 mg/dL (0-149) H 03/20/17 07:52 Cholesterol 223 mg/dL (0-199) H 03/20/17 07:52 LDL Cholesterol Direct 141 mg/dL (0-129) H 03/20/17 07:52 HDL Cholesterol 35 mg/dL (30-70) 03/20/17 07:52 Lipase 71 U/L (23-300) 03/19/17 16:16 TSH 3rd Generation 0.28 mIU/L (0.46-4.68) L 03/20/17 07:52 Discharge Exam - Head Exam Head Exam: ATRAUMATIC, NORMAL INSPECTION, NORMOCEPHALIC Discharge Plan - Follow Up Plan Condition: FAIR Disposition: HOME/ ROUTINE
== END 2017-03-22 14:45 | disposition home or self-care (01) | DRG 313 ==
LOC: C.ER 15:14 → C.6T 19:34 → OBSVTOIN 03-21 16:11
PROVIDERS: ADMIT Specialist; ATTEND Specialist
DX: R07.9 Chest pain, unspecified (principal); E11.65 Type 2 diabetes mellitus with hyperglycemia; I10 Essential (primary) hypertension; K21.9 Gastro-esophageal reflux disease without esophagitis; D64.9 Anemia, unspecified; F32.9 Major depressive disorder, single episode, unspecified

== ENCOUNTER 2017-05-22 06:00 | Day surgery (SDC) | payer OTHER, BC ==
[2017-05-16 13:03] VITALS: BMI 28.1
[2017-05-22] MEDS ORDERED: Propofol 10 mg/ml Inj (20 ML) ONE (07:51)
[2017-05-22] MEDS ORDERED: Lactated Ringer's 1,000 ML IV ONE (08:00)
[2017-05-22] MEDS ORDERED: Bupivacaine HCl 0.25% PF (10 ml) Inj ONE (08:02)
[2017-05-22] MEDS ORDERED: EPINEPHrine 1:1000 Nasal Sol(30mL) ONE (08:10)
[2017-05-22] MEDS ORDERED: Vancomycin 1 g Inj ONE (08:10)
[2017-05-22] MEDS ORDERED: ceFAZolin IV 1 gm in Dextrose 1 GM/50 ML BAG IVPB ONE (08:43)
--- NOTE | 2017-05-22 08:53 | PCM.ANESB1 ---
Interscalene Block - Brachial Plexus Date of Procedure: 05/22/17 Anesthesiologist: Melissa Pre-Procedure Diagnosis: left olecranon bursa Post-Procedure Diagnosis: same Procedure Performed: Interscalene Block of Brachial Plexus Left ( supraclavicular block of brachial plexus left) - Procedure Interscalene Block of Brachial Plexus: This procedure was explained to the patient that it is for post-operative pain management. Consent was obtained after a thorough discussion with the patient regarding the benefits and possible complications of local anesthetic block of the Brachial Plexus at the supraclavicular area. The patient was brought to the Operating Room and standard monitors were applied. Time out was held with the circulating nurse to confirm the correct surgery and appropriate block. After applying Oxygen by nasal cannula and administering IV Sedation, the patient's head was gently rotated away from the left operative elbow. The ultrasound transducer was then applied to the skin in the transverse plane and the brachial plexus was visualized lateral to the carotid artery. After identification,the anterior lateral portion of the neck was prepped with chloraprep solution and 1mL of Lidocaine 2% was injected subcutaneously for topical analgesia. At this point, a # 22 gauge Stimuplex 2 inches insulated needle was inserted and directed in a caudal and midline direction. The needle was inserted lateral to the ultrasound transducer in-plane towards the brachial plexus in a lateral- to-medial direction. Needle advancement was performed carefully under constant direct ultrasound visualization. After repeated negative aspiration, 5cc of 0.25 % Bupivacaine were injected and this was followed with 25cc of 0.25% Bupivacaine. Under ultrasound guidance the local anesthetics were observed surrounding the roots of the brachial plexus. The needle was removed intact and sterile dressing was applied. The patient had stable vital signs, was conscious and in no apparent distress. The patient tolerated the supraclavicular block of the bracheal plexus well with stable vital signs and was prepared for subsequent surgery.
[2017-05-22] MEDS ORDERED: ePHEDrine 50 mg/ml Inj ONE (08:55)
[2017-05-22 11:35] VITALS: TEMP 97.8
[2017-05-22 13:47] VITALS: BP 137/77; PULSE 65; RESP 18; O2SAT 100
--- NOTE | 2017-05-22 20:43 | OP ---
PREOPERATIVE DIAGNOSIS: Olecranon bursitis of the left elbow with exostosis of the olecranon. POSTOPERATIVE DIAGNOSES: 1. Severe hypertrophic olecranon bursitis. 2. Exostosis of the olecranon process. PROCEDURE: 1. Olecranon bursectomy. 2. Excision of exostosis. 3. Introduction of vancomycin powder. 4. Application of a long-arm posterior splint. PROCEDURE: Prior to the procedure, risk and benefits of the surgery, problems, and complications were explained to the patient including reoccurrence, infection, wound dehiscence, need for future surgery, permanent weakness, permanent numbness, possible loss of life and limb etc. The patient has diabetes mellitus, and all the associated complications of diabetes mellitus. The surgery once again was reemphasized. The patient was brought to the operating room. The left elbow was identified as the elbow to be operated, was prepped and draped in a usual manner. The patient previously had a scalene block to provide further analgesia postoperatively. The pneumatic tourniquet was applied after prepping and draping the limb and exsanguinating the limb. Medial to the midline incision was made, dissection was carried down. Thick subcutaneous flaps were raised to a minimal degree just enough to get the exposure. Thick hypertrophic olecranon bursal tissue was seen. The entire tissue was demarcated proximally, distally, medially, and laterally, and the excision of the olecranon bursa was done. About 10 mL of blood stained fluid was evacuated. The bursa was excised in toto and keeping the triceps, aponeurosis attachment intact. At this point an exostosis was seen over the apex of the olecranon process and exostectomy was done with a rongeur and rasp was used to smoothen the bone. At this point, the wound was packed with epinephrine soaked sponges, tourniquet was released, minimal bleeding was noted, hemostasis was obtained and the subcutaneous tissue was closed to the periosteum there by obliterating the space. Vancomycin powder was then infiltrated into the joint and skin was closed with 3-O nylon suture. The patient tolerated the procedure well, left the operating room to the recovery room in satisfactory condition. The arm was placed in a long-arm posterior splint. Donya Linder MD
== END 2017-05-22 16:05 | disposition home or self-care (01) ==
LOC: C.SDS 06:00
PROVIDERS: ATTEND Orthopaedic Surgery
DX: M70.22 Olecranon bursitis, left elbow (principal); M89.9 Disorder of bone, unspecified
CPT/HCPCS: 24120; 82948; 88305; J0690; J2001; J2270; J2405; J2704; J2765; J3010; J7120

== ENCOUNTER 2017-11-06 11:11 | Emergency (ER) | payer OTHER, BC ==
[2017-11-06 11:11] VITALS: BMI 28.6
[2017-11-06] MEDS ORDERED: Labetalol 5 mg/ml Inj 20ML IV STA (11:45)
[2017-11-06] MEDS ORDERED: Labetalol 25mg/5ml Syringe ONE (12:00)
[2017-11-06 12:14] VITALS: RESP 20; O2SAT 98
[2017-11-06 12:20] LABS: BASO % 0.5 % (0.0-2.0); EOS # 0.3 K/uL (0.0-0.7); EOS % 3.7 % (0.0-4.0); HEMOGLOBIN 13.3 g/dL (11.0-16.0); LYMPH % 27.4 % (20.0-40.0); MEAN CELL VOLUME 82.7 fL (81.0-99.0); MEAN CORPUSCULAR HGB CONC 33.8 g/dL (33.0-37.0); MEAN PLATELET VOLUME 9.9 fL (7.2-11.7); MONO # 0.6 K/uL (0.0-0.8); MONO % 8.4 % (0.0-10.0); NEUT # 4.3 K/uL (1.8-7.0); RBC 4.76 Mil/uL (3.80-5.20); RED CELL DISTRIBUTION WIDTH 13.7 % (11.5-14.5); WHITE BLOOD COUNT 7.1 K/uL (4.8-10.8)
--- NOTE | 2017-11-06 12:29 | C.PDOC ---
History Of Present Illness 57-year-old female, PMHx includes Hypertension, presents to the emergency department with complaints of generalized headache, dizziness, and blurred vision that started this morning. Patient states she took her blood pressure medication this morning. States blood pressure was in 200s, resulting in her coming to the ED for evaluation. She denies chest pain, shortness of breath, abdominal pain, weakness/numbness, or any other associated symptoms. No other complaints at this time. Time Seen by Provider: 11/06/17 11:34 Chief Complaint (Nursing): High Blood Pressure History Per: Patient History/Exam Limitations: no limitations Past Medical History Reviewed: Historical Data, Nursing Documentation, Vital Signs Vital Signs: Last Vital Signs Temp 97.9 F 11/06/17 11:26 Pulse 80 11/06/17 12:13 Resp 20 11/06/17 12:13 BP 152/92 H 11/06/17 14:26 Pulse Ox 98 11/06/17 14:29 - Medical History PMH: Anemia, Anxiety, Arthritis, Asthma (In the Past), Depression, Diabetes, Gastritis, HTN, Hypercholesterolemia, Post Traumatic Stress Disorder, TIA ( Questionable AUG 2014) Denies: Hepatitis, Chronic Kidney Disease Surgical History: Endoscopy - [facility] Procedures CYSTOSCOPY NEC (12/14/13) DX ULTRASOUND-HEART (09/20/14) MONITORING NOS (12/02/97) INSPECTION OF ABDOMINAL WALL, PERC ENDO APPROACH (10/15/15) LAPAROSCOP LYSIS-PERITONEAL ADHES (12/30/13) LAPAROSCOP REMOVE OVARIES/TUBES (12/30/13) LAPAROSCOPIC ROBOTIC ASSISTED PROCEDURE (12/30/13) LEFT HEART CARDIAC CATH (06/24/14) LOW CERVICAL (12/02/97) LT HEART ANGIOCARDIOGRAM (06/24/14) MEDICATION MANAGEMENT (12/10/16) RELEASE LARGE INTESTINE, OPEN APPROACH (10/15/15) RELEASE PERITONEUM, OPEN APPROACH (10/15/15) REMOVAL OF EXTRALUMINAL DEVICE FROM STOMACH, OPEN APPROACH (10/15/15) RETROGRADE PYELOGRAM (12/14/13) UTERINE LES DESTRUCT NEC (12/02/97) Family History: States: No Known Family Hx, Diabetes - Social History Hx Tobacco Use: No Hx Alcohol Use: No Hx Substance Use: No - Immunization History Hx Tetanus Toxoid Vaccination: No Hx Influenza Vaccination: Yes (2016) Hx Pneumococcal Vaccination: No Review Of Systems Except As Marked, All Systems Reviewed And Found Negative. Constitutional: Negative for: Fever, Chills Eyes: Positive for: Vision Change Cardiovascular: Negative for: Chest Pain, Palpitations Respiratory: Negative for: Shortness of Breath Gastrointestinal: Negative for: Vomiting Musculoskeletal: Negative for: Back Pain Neurological: Positive for: Headache, Dizziness. Negative for: Weakness, Numbness, Incoordination, Change in Speech, Confusion, Seizures, Altered Mental Status Physical Exam - Physical Exam Appears: Well, Non-toxic, No Acute Distress Skin: Normal Color, Warm, Dry, No Rash Head: Normacephalic Eye(s): bilateral: PERRL Oral Mucosa: Moist Lips: Normal Appearing Neck: Normal ROM Chest: Symmetrical Cardiovascular: Rhythm Regular, No Murmur Respiratory: Normal Breath Sounds, No Accessory Muscle Use Extremity: Normal ROM Neurological/Psych: Oriented x3, Normal Speech, Normal Motor, Normal Sensation, Other (no focal deficit) ED Course And Treatment - Laboratory Results Result Diagrams: 11/06/17 12:15 11/06/17 12:15 ECG: Interpreted By Me, Viewed By Me ECG Rhythm: Sinus Rhythm ECG Interpretation: No Acute Changes (Non-specific T-wave changes) Rate From EC O2 Sat by Pulse Oximetry: 98 (RA) Pulse Ox Interpretation: Normal Medical Decision Making Medical Decision Making: Plan: * CT Head * EKG * CMP, Trop I * Chest X-Ray * CBC * Labetalol * UA * Reassess and Disposition Reassess: On re-evaluation, patient does not appear in any distress. Symptoms have improved. Patient will be discharged for outpatient f/u with PMD in 1-2 days. All questions answered. Disposition Counseled Patient/Family Regarding: Studies Performed, Diagnosis, Need For Followup - Disposition Referrals: Srikanth Winston MD [Staff Provider] - Disposition: HOME/ ROUTINE Disposition Time: 14:14 Condition: IMPROVED Additional Instructions: follow up with your doctor in 2 days call to make an appointment take medications as prescribed return to ER if symptoms worsens or progress Instructions: Hypertension (ED) Forms: [facility] (Arabic), General Discharge Instructions - Clinical Impression Clinical Impression: Hypertension - Scribe Statement The provider has reviewed the documentation as recorded by the Scribe (Priyanka Valdez) All medical record entries made by the Scribe were at my direction and personally dictated by me. I have reviewed the chart and agree that the record accurately reflects my personal performance of the history, physical exam, medical decision making, and the department course for this patient. I have also personally directed, reviewed, and agree with the discharge instructions and disposition.
--- NOTE | 2017-11-06 12:30 | RAD ---
HISTORY: chest pain COMPARISON: Chest x-ray performed 05/16/17 TECHNIQUE: Chest, one view. FINDINGS: Examination limited by habitus. LUNGS: No focal consolidation. Please note that chest x-ray has limited sensitivity for the detection of pulmonary masses. PLEURA: No significant pleural effusion identified. No definite pneumothorax . CARDIOVASCULAR: Heart size appears within normal limits. Ectatic aorta. OSSEOUS STRUCTURES: Degenerative changes of the spine and shoulders. VISUALIZED UPPER ABDOMEN: Unremarkable. OTHER FINDINGS: None. IMPRESSION: No focal consolidation identified.
[2017-11-06 12:37] LABS: CALCIUM 9.1 mg/dl (8.6-10.4); GFR AFRICAN-AMERICAN > 60; GFR NON-AFRICAN AMERICAN > 60
--- NOTE | 2017-11-06 12:47 | CT ---
PROCEDURE: CT HEAD WITHOUT CONTRAST. HISTORY: dizziness COMPARISON: Noncontrast head CT performed 08/29/16 TECHNIQUE: Axial computed tomography images were obtained through the head/brain without intravenous contrast. Radiation dose: Total exam DLP = 894.86 mGy-cm. This CT exam was performed using one or more of the following dose reduction techniques: Automated exposure control, adjustment of the mA and/or kV according to patient size, and/or use of iterative reconstruction technique. FINDINGS: HEMORRHAGE: No intracranial hemorrhage. BRAIN: No mass effect or edema. No atrophy or chronic microvascular ischemic changes. VENTRICLES: No hydrocephalus. CALVARIUM: Unremarkable. PARANASAL SINUSES: Unremarkable as visualized. No significant inflammatory changes. MASTOID AIR CELLS: Unremarkable as visualized. No inflammatory changes. OTHER FINDINGS: None. IMPRESSION: No acute intracranial pathology identified.
[2017-11-06 12:56] LABS: ALB/GLOB RATIO 1.1 (1.0-2.1); ALT/SGPT 18 U/L (9-52); AST/SGOT 37 U/L (14-36); BLOOD UREA NITROGEN 16 mg/dL (7-17)
[2017-11-06 14:44] VITALS: BP 156/89; PULSE 81; TEMP 98.2
== END 2017-11-06 14:39 | disposition home or self-care (01) ==
LOC: C.ER 11:11
DX: I10 Essential (primary) hypertension (principal); E11.9 Type 2 diabetes mellitus without complications; E78.00 Pure hypercholesterolemia, unspecified

== ENCOUNTER 2018-05-13 21:54 | Observation (INO) | payer BC, OTHER ==
[2018-05-13 21:55] VITALS: BMI 28.8
[2018-05-13 23:06] LABS: BASO # 0.1 K/uL (0.0-0.2); BASO % 0.9 % (0.0-2.0); EOS # 0.5 K/uL (0.0-0.7); EOS % 6.8 % (0.0-4.0); HEMOGLOBIN 13.9 g/dL (11.0-16.0); LYMPH # 1.8 K/uL (1.0-4.3); LYMPH % 23.2 % (20.0-40.0); MEAN CELL VOLUME 82.6 fL (81.0-99.0); MEAN CORPUSCULAR HEMOGLOBIN 26.8 pg (27.0-31.0); MEAN CORPUSCULAR HGB CONC 32.4 g/dL (33.0-37.0); MEAN PLATELET VOLUME 9.2 fL (7.2-11.7); MONO # 0.5 K/uL (0.0-0.8); MONO % 6.6 % (0.0-10.0); NEUT # 4.9 K/uL (1.8-7.0); NEUT % 62.5 % (50.0-75.0); RBC 5.17 Mil/uL (3.80-5.20); RED CELL DISTRIBUTION WIDTH 13.9 % (11.5-14.5); WHITE BLOOD COUNT 7.9 K/uL (4.8-10.8)
[2018-05-13 23:22] LABS: ALB/GLOB RATIO 1.1 (1.0-2.1); ALBUMIN 4.8 g/dL (3.5-5.0); ALT/SGPT 25 U/L (9-52); AST/SGOT 26 U/L (14-36); BLOOD UREA NITROGEN 18 mg/dL (7-17); CALCIUM 9.9 mg/dl (8.6-10.4); GFR NON-AFRICAN AMERICAN 57
[2018-05-13] MEDS ORDERED: Sodium Chloride 0.9% 1,000 ML IV STA (23:25)
[2018-05-13] MEDS ORDERED: Sodium Chloride 0.9% 1,000 ML ONE (23:29)
--- NOTE | 2018-05-14 00:42 | C.PDOC ---
History Of Present Illness <Ricardo Portillo - Last Filed: 05/14/18 00:39> <Petra Wang - Last Filed: 05/14/18 02:57> 58 y/o F c PMHx HTN, DM p/w chest pain x 3 hours. Pain is midsternal, sharp, radiating to R lower chest, associated with shortness of breath. Denies nausea, vomiting, diaphoresis, trauma, fever, cough. (Ricardo Portillo) <Ricardo Portillo - Last Filed: 05/14/18 00:39> <Petra Wang - Last Filed: 05/14/18 02:57> Time Seen by Provider: 05/13/18 22:43 Chief Complaint (Nursing): Chest Pain Past Medical History - Medical History PMH: Anemia, Anxiety, Arthritis, Asthma, Depression, Diabetes, Gastritis, HTN, Hypercholesterolemia, Post Traumatic Stress Disorder, TIA (Questionable AUG 2014 ) Denies: Hepatitis, Chronic Kidney Disease Surgical History: Endoscopy Family History: States: Diabetes - Social History Hx Tobacco Use: No Hx Alcohol Use: No Hx Substance Use: No - Immunization History Hx Tetanus Toxoid Vaccination: No Hx Influenza Vaccination: Yes Hx Pneumococcal Vaccination: No <Ricardo Portillo - Last Filed: 05/14/18 00:39> Vital Signs: Last Vital Signs Temp 98.3 F 05/13/18 22:02 Pulse 78 05/13/18 23:39 Resp 20 05/13/18 23:39 BP 183/111 H 05/13/18 23:39 Pulse Ox 98 05/14/18 00:43 - [facility] Procedures CYSTOSCOPY NEC (12/14/13) DX ULTRASOUND-HEART (09/20/14) MONITORING NOS (12/02/97) INSPECTION OF ABDOMINAL WALL, PERC ENDO APPROACH (10/15/15) LAPAROSCOP LYSIS-PERITONEAL ADHES (12/30/13) LAPAROSCOP REMOVE OVARIES/TUBES (12/30/13) LAPAROSCOPIC ROBOTIC ASSISTED PROCEDURE (12/30/13) LEFT HEART CARDIAC CATH (06/24/14) LOW CERVICAL (12/02/97) LT HEART ANGIOCARDIOGRAM (06/24/14) MEDICATION MANAGEMENT (12/10/16) RELEASE LARGE INTESTINE, OPEN APPROACH (10/15/15) RELEASE PERITONEUM, OPEN APPROACH (01/23/16) REMOVAL OF EXTRALUMINAL DEVICE FROM STOMACH, OPEN APPROACH (10/15/15) RETROGRADE PYELOGRAM (12/14/13) UTERINE LES DESTRUCT NEC (12/02/97) Review Of Systems Except As Marked, All Systems Reviewed And Found Negative. Constitutional: Negative for: Fever Gastrointestinal: Negative for: Vomiting <Ricardo Portillo - Last Filed: 05/14/18 00:39> Physical Exam <Ricardo Portillo - Last Filed: 05/14/18 00:39> <Petra Wang - Last Filed: 05/14/18 02:57> - Physical Exam Additional Physical Exam Comments: Gen: NAD Head: NC/AT Eyes: No scleral icterus ENT: MMM Neck: Supple Chest: Reproducible tenderness CV: Regular rate Lungs: CTA b/l Abd: Soft, NT Back: No CVA tenderness Extremities: No edema Skin: No rash Neuro: Alert, no focal deficit (Ricardo Portillo) ED Course And Treatment - Laboratory Results Result Diagrams: 05/13/18 23:03 05/13/18 23:03 O2 Sat by Pulse Oximetry: 98 <Ricardo Portillo - Last Filed: 05/14/18 00:39> - Laboratory Results Result Diagrams: 05/13/18 23:03 05/13/18 23:03 <Sully Wangdi - Last Filed: 05/14/18 02:57> Medical Decision Making <Ricardo Portillo - Last Filed: 05/14/18 00:39> <Sully Wangdi - Last Filed: 05/14/18 02:57> Medical Decision Making: EKG NSR 83 bpm, no ST elevations CXR no consolidation. Aspirin administered. Dr. Winston paged. (Ricardo Portillo) Disposition <Ricardo Portillo - Last Filed: 05/14/18 00:39> Discussed With : Shahab Dean Comment: accepted the pt on his service and tookover the care at 2:56 AM Doctor Will See Patient In The: ED Counseled Patient/Family Regarding: Studies Performed, Diagnosis - Disposition Disposition Time: 01:00 - POA Present On Arrival: Poor Glycemic Control <FelipeSullydi - Last Filed: 05/14/18 02:57> - Disposition Disposition: HOSPITALIZED Condition: FAIR Forms: [employer] (South Korean) - Clinical Impression Clinical Impression: Chest pain, Uncontrolled diabetes mellitus, Uncontrolled hypertension Decision To Admit <Ricardo Portillo - Last Filed: 05/14/18 00:39> - Pt Status Changed To: Hospital Disposition Of: Observation - . Bed Request Type: Telemetry Admitting Physician: Shahab Dean <Petra Wang - Last Filed: 05/14/18 02:57> - . Patient Diagnosis: Chest pain, Uncontrolled diabetes mellitus, Uncontrolled hypertension
[2018-05-14] MEDS ORDERED: (Lantus) Insulin Glargine, Recombinant SC STA (03:57)
[2018-05-14] MEDS ORDERED: Dextrose 50% SYRINGE Inj (50 ml) IV PRN (04:04)
[2018-05-14] MEDS ORDERED: Glucagon Recombinant 1 mg Inj IM PRN (04:04)
--- NOTE | 2018-05-14 04:43 | CP.PCM.HP ---
<Nikky MarshallElise - Last Filed: 05/14/18 04:29> History of Present Illness - History of Present Illness History of Present Illness: CC: chest pain HPI: Patient is a 58 y/o F with PMHx of HTN, DMII, and anxiety who presents to the ED for chest pain which started at 7pm. Patient was at work when she started to feel a pressure like pain in the middle of her chest that radiated into and below her right breast. Patient said the pain was 5/10 and slowly increased. Patient had one of the nurses check her blood pressure and it was 192 /112 so she came to the ER. Patient denies any fevers, chills, headache, blurry vision, palpitations, shortness of breath, abdominal pain, nausea, vomiting, constipation, diarrhea, or dysuria. Patient has had no recent travel. 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 Of note patient usually changes her Clonidine patch weekly, but has not had one on for about 2 days. Cardio: Dr. Oakes - ajit stress and echo in 2016 PMD: Srikanth Winston All: percocet- nausea PMhx: HTN, DMII, and anxiety Psurg: cardiac cath (2013), R rotator cuff (2015), gastric band (2007), gastric band replacement (2009), gastric band removal 2015 Famhx: Mom: HTN, stroke at 70, Dad: open heart surgery at 77 Social: stopped smoking in 1997 (1 pack per week for 20 years), denies alcohol or drugs Home meds: Humalog 15 u before meals, Lantus 30 u HS, [place]ysta 80/10mg daily, Present on Admission - Present on Admission Any Indicators Present on Admission: No History of DVT/PE: No History of Uncontrolled Diabetes: No Urinary Catheter: No Decubitus Ulcer Present: No Review of Systems - Constitutional Constitutional: absent: Chills, Fever - EENT Eyes: absent: Blurred Vision - Cardiovascular Cardiovascular: Chest Pain. absent: Dyspnea, Palpitations - Respiratory Respiratory: absent: Cough, Dyspnea, Wheezing - Gastrointestinal Gastrointestinal: absent: Abdominal Pain, Constipation, Diarrhea, Nausea, Vomiting - Genitourinary Genitourinary: absent: Dysuria, Hematuria - Musculoskeletal Musculoskeletal: absent: Numbness, Tingling - Neurological Neurological: absent: Weakness Past Patient History - Infectious Disease Hx of Infectious Diseases: None - Tetanus Immunizations Tetanus Immunization: Unknown - Past Medical History & Family History Past Medical History?: Yes - Past Social History Smoking Status: Never Smoked - CARDIAC Hx Hypercholesterolemia: Yes Hx Hypertension: Yes - PULMONARY Hx Asthma: Yes - NEUROLOGICAL Hx Transient Ischemic Attacks (TIA): Yes (Questionable AUG 2014) - HEENT Hx HEENT Problems: No - RENAL Hx Chronic Kidney Disease: No - ENDOCRINE/METABOLIC Hx Endocrine Disorders: Yes Hx Diabetes Mellitus Type 2: Yes - HEMATOLOGICAL/ONCOLOGICAL Hx Anemia: Yes - INTEGUMENTARY Hx Dermatological Problems: No - MUSCULOSKELETAL/RHEUMATOLOGICAL Hx Arthritis: Yes - GASTROINTESTINAL Hx Gastritis: Yes - PSYCHIATRIC Hx Anxiety: Yes Hx Depression: Yes Hx Post Traumatic Stress Disorder: Yes Hx Substance Use: No - ANESTHESIA Hx Anesthesia: Yes Hx Anesthesia Reactions: Yes (difficulty awakening,combative) Hx Malignant Hyperthermia: No Meds Allergies/Adverse Reactions: Allergies Allergy/AdvReac Type Severity Reaction Status Date / Time acetaminophen [From Percocet] AdvReac Intermediate VOMITING Verified 05/13/18 22 :09 oxycodone HCl [From Percocet] AdvReac Intermediate VOMITING Verified 05/13/18 22 :09 Physical Exam - Constitutional Appears: Non-toxic, No Acute Distress - Head Exam Head Exam: ATRAUMATIC, NORMAL INSPECTION, NORMOCEPHALIC - Eye Exam Eye Exam: EOMI, Normal appearance - ENT Exam ENT Exam: Mucous Membranes Moist - Respiratory Exam Respiratory Exam: Clear to Auscultation Bilateral, NORMAL BREATHING PATTERN - Cardiovascular Exam Cardiovascular Exam: REGULAR RHYTHM, RRR, +S1, +S2 - GI/Abdominal Exam GI & Abdominal Exam: Normal Bowel Sounds, Soft. absent: Tenderness - Extremities Exam Extremities exam: Positive for: normal inspection, pedal edema - Back Exam Back exam: NORMAL INSPECTION - Neurological Exam Neurological exam: Alert, Oriented x3 - Psychiatric Exam Psychiatric exam: Normal Affect, Normal Mood - Skin Skin Exam: Intact, Normal Color, Warm Results - Vital Signs Recent Vital Signs: Last Vital Signs Temp 97 F L 05/14/18 03:59 Pulse 80 05/14/18 03:59 Resp 20 05/14/18 03:59 BP 191/93 H 05/14/18 03:59 Pulse Ox 98 05/14/18 03:59 - Labs Result Diagrams: 05/13/18 23:03 05/13/18 23:03 Labs: Laboratory Results - last 24 hr 05/13/18 05/13/18 05/13/18 23:03 23:03 23:29 WBC 7.9 RBC 5.17 Hgb 13.9 Hct 42.7 MCV 82.6 MCH 26.8 L MCHC 32.4 L RDW 13.9 Plt Count 255 MPV 9.2 Neut % (Auto) 62.5 Lymph % (Auto) 23.2 Rincon % (Auto) 6.6 Eos % (Auto) 6.8 H Baso % (Auto) 0.9 Neut # (Auto) 4.9 Lymph # (Auto) 1.8 Rincon # (Auto) 0.5 Eos # (Auto) 0.5 Baso # (Auto) 0.1 Sodium 140 Potassium 4.7 Chloride 92 L Carbon Dioxide 31 H Anion Gap 21 H BUN 18 H Creatinine 1.0 Est GFR ( Amer) > 60 Est GFR (Non-Af Amer) 57 Random Glucose 456 H* D Calcium 9.9 Total Bilirubin 0.8 AST 26 ALT 25 Alkaline Phosphatase 167 H D CK-MB (Mass) 0.30 Troponin I < 0.0120 Total Protein 9.0 H Albumin 4.8 Globulin 4.2 H Albumin/Globulin Ratio 1.1 B-Hydroxybutyrate 0.11 Assessment & Plan - Assessment and Plan (Free Text) Assessment: Chest Pain r/o ACS Troponin I negative repeat HENRIK x 2 EKG NSR HTN Amlodipine 10mg po daily Clonidine .2mg po stat dose given Clonidine .2mg patch Losartan 50mg po daily DMII f/u HgA1C f/u lipid panel accuchecks achs Novolog 10 u ACTID Lantus 25u HS ISS- low hypoglycemia protocol Prophylaxis SCDs Pepcid 20mg po daily Discussed with Dr. Dean <Shahab Dean - Last Filed: 05/14/18 05:02> Results - Vital Signs Recent Vital Signs: Last Vital Signs Temp 97 F L 05/14/18 03:59 Pulse 80 05/14/18 03:59 Resp 20 05/14/18 03:59 BP 191/93 H 05/14/18 03:59 Pulse Ox 98 05/14/18 03:59 - Labs Result Diagrams: 05/13/18 23:03 05/13/18 23:03 Labs: Laboratory Results - last 24 hr 05/13/18 05/13/18 05/13/18 23:03 23:03 23:29 WBC 7.9 RBC 5.17 Hgb 13.9 Hct 42.7 MCV 82.6 MCH 26.8 L MCHC 32.4 L RDW 13.9 Plt Count 255 MPV 9.2 Neut % (Auto) 62.5 Lymph % (Auto) 23.2 Rincon % (Auto) 6.6 Eos % (Auto) 6.8 H Baso % (Auto) 0.9 Neut # (Auto) 4.9 Lymph # (Auto) 1.8 Rincon # (Auto) 0.5 Eos # (Auto) 0.5 Baso # (Auto) 0.1 Sodium 140 Potassium 4.7 Chloride 92 L Carbon Dioxide 31 H Anion Gap 21 H BUN 18 H Creatinine 1.0 Est GFR ( Amer) > 60 Est GFR (Non-Af Amer) 57 Random Glucose 456 H* D Calcium 9.9 Total Bilirubin 0.8 AST 26 ALT 25 Alkaline Phosphatase 167 H D CK-MB (Mass) 0.30 Troponin I < 0.0120 Total Protein 9.0 H Albumin 4.8 Globulin 4.2 H Albumin/Globulin Ratio 1.1 B-Hydroxybutyrate 0.11 Attending/Attestation - Attestation I have personally seen and examined this patient.: Yes I have fully participated in the care of the patient.: Yes I have reviewed all pertinent clinical information: Yes Notes (Text): 05/14/18 04:59 Atypical chest pain Uncontrolled bp due to poor compliance off the clonidine patch as ran out Uncontrolled dm due to poor compliance of insulin and diet Plan Counselled abut diet insulin and med compliance Hgba1c Serial enzymes See orders for detail.
[2018-05-14 06:43] LABS: BASO # 0.1 K/uL (0.0-0.2); BASO % 0.9 % (0.0-2.0); EOS # 0.5 K/uL (0.0-0.7); EOS % 6.8 % (0.0-4.0); LYMPH # 2.1 K/uL (1.0-4.3); LYMPH % 30.5 % (20.0-40.0); MEAN CELL VOLUME 81.9 fL (81.0-99.0); MEAN CORPUSCULAR HEMOGLOBIN 27.6 pg (27.0-31.0); MEAN CORPUSCULAR HGB CONC 33.7 g/dL (33.0-37.0); MEAN PLATELET VOLUME 8.4 fL (7.2-11.7); MONO # 0.6 K/uL (0.0-0.8); MONO % 8.1 % (0.0-10.0); NEUT # 3.7 K/uL (1.8-7.0); NEUT % 53.7 % (50.0-75.0); NRBC % 0.1 % (0.0-2.0); RBC 4.22 Mil/uL (3.80-5.20); RED CELL DISTRIBUTION WIDTH 13.5 % (11.5-14.5); WHITE BLOOD COUNT 6.9 K/uL (4.8-10.8)
[2018-05-14 06:55] LABS: HEMOGLOBIN 11.7 g/dL (11.0-16.0)
[2018-05-14 07:08] LABS: LDL CHOLESTEROL 133 mg/dL (0-129)
[2018-05-14 07:10] LABS: ALB/GLOB RATIO 1.4 (1.0-2.1); ALBUMIN 3.9 g/dL (3.5-5.0); ALT/SGPT 26 U/L (9-52); AST/SGOT 10 U/L (14-36); BLOOD UREA NITROGEN 16 mg/dL (7-17); CALCIUM 8.6 mg/dl (8.6-10.4); CK-MB < 0.22 ng/mL (0.0-3.38); GFR NON-AFRICAN AMERICAN > 60; HDL CHOLESTEROL 30 mg/dL (30-70)
[2018-05-14] MEDS: (Novolin R) Insulin Human Regular 100 units/ml vial SC SCH ×2 (08:31→11:52)
[2018-05-14] MEDS ORDERED: (Novolin R) Insulin Human Regular 100 units/ml vial ONE (08:31)
[2018-05-14] MEDS: (Novolog) Insulin Aspart, Recombinant 100 u/ml 10 ml vial SC SCH ×4 (09:00→21:36)
[2018-05-14] MEDS ORDERED: (Novolog) Insulin Aspart, Recombinant 100 u/ml 10 ml vial ONE (09:01)
--- NOTE | 2018-05-14 10:47 | RAD ---
Chest x-ray two views History: Chest pain. Comparison: 11/06/2017 Findings: Mild venous congestion. Tortuous ectatic aorta. Right hilar prominence. Mild cardiomegaly. Degenerative changes in spine with paravertebral osteophytes. Degenerative changes in the shoulders. Impression: Mild venous congestion.
[2018-05-14 12:28] LABS: CK-MB < 0.22 ng/mL (0.0-3.38)
--- NOTE | 2018-05-14 14:37 | CP.PCM.PN ---
<Yenni Villalta - Last Filed: 05/14/18 16:44> Subjective - Date & Time of Evaluation Date of Evaluation: 05/14/18 Time of Evaluation: 10:25 - Subjective Subjective: Pt evaluated at bedside and appears comfortable. Pt clarified that she has not been wearing her clonidine patch because she ran out and hasn't been able to refill her prescription. Pt also admits to non compliance with checking her blood sugars and taking her medications regularly. She denies any chest pain, SOB, fevers/chills, abdominal pain, nausea or vomiting at this time. Objective - Vital Signs/Intake and Output Vital Signs (last 24 hours): Temp Pulse Resp BP Pulse Ox 98.6 F 74 18 122/76 98 05/14/18 09:30 05/14/18 09:30 05/14/18 09:30 05/14/18 11:15 05/14/18 12:49 - Medications Medications: Current Medications Amlodipine Besylate (Norvasc) 10 mg PO DAILY [facility] Last Admin: 05/14/18 11:13 Dose: 10 mg Clonidine HCl (Catapres-Tts2 0.2 Mg/24 Hr) 1 patch TD Q7D@1000 [facility] Last Admin: 05/14/18 11:53 Dose: 1 patch Dextrose (Dextrose 50% Inj) 0 ml IV STAT PRN; Protocol PRN Reason: Hypoglycemia Protocol Dextrose (Glutose 15) 0 gm PO ONCE PRN; Protocol PRN Reason: Hypoglycemia Protocol Famotidine (Pepcid) 20 mg PO DAILY [facility] Last Admin: 05/14/18 11:13 Dose: 20 mg Glucagon (Glucagen Diagnostic Kit) 0 mg IM STAT PRN; Protocol PRN Reason: Hypoglycemia Protocol Heparin Sodium (Porcine) (Heparin) 5,000 units SC Q8 [facility] Last Admin: 05/14/18 13:44 Dose: Not Given Dextrose (Dextrose 5% In Water 1000 Ml) 1,000 mls @ 0 mls/hr IV .Q0M PRN; Protocol; Per Protocol PRN Reason: Hypoglycemia Protocol Insulin Aspart (Novolog) 14 unit SC ACTID [facility] Insulin Aspart (Novolog) 0 unit SC ACHS [facility] Insulin Glargine (Lantus) 30 unit SC HS [facility] Losartan Potassium (Cozaar) 50 mg PO DAILY [facility] Last Admin: 05/14/18 11:13 Dose: 50 mg - Labs Labs: 05/14/18 06:40 05/14/18 06:40 - Constitutional Appears: Non-toxic, No Acute Distress - Head Exam Head Exam: ATRAUMATIC, NORMAL INSPECTION, NORMOCEPHALIC - Eye Exam Eye Exam: EOMI, Normal appearance Pupil Exam: PERRL - ENT Exam ENT Exam: Mucous Membranes Moist, Normal Exam - Neck Exam Neck Exam: Normal Inspection. absent: Lymphadenopathy - Respiratory Exam Respiratory Exam: Clear to Ausculation Bilateral, NORMAL BREATHING PATTERN. absent: Rales, Wheezes - Cardiovascular Exam Cardiovascular Exam: REGULAR RHYTHM, +S1, +S2. absent: Murmur - GI/Abdominal Exam GI & Abdominal Exam: Soft, Normal Bowel Sounds. absent: Tenderness - Extremities Exam Extremities Exam: Full ROM, Normal Inspection. absent: Calf Tenderness, Pedal Edema - Neurological Exam Neurological Exam: Alert, Awake, CN II-XII Intact, Normal Gait, Oriented x3 - Psychiatric Exam Psychiatric exam: Normal Affect, Normal Mood - Skin Skin Exam: Dry, Intact, Normal Color, Warm Assessment and Plan - Assessment and Plan (Free Text) Assessment: 58 yr old female admitted for chest pain workup. r/o ACS Troponin I negative x3 EKG NSR 2014 cardiac cath - no acute findings 2016 echo and stress test - EF 65%, mild mitral regurg Cardio consulted -Dr. Munoz HTN Amlodipine 10mg po daily Clonidine .2mg patch Losartan 50mg po daily DMII HgA1C 13.7 accuchecks achs Novolog 14 u ACTID Lantus 30u HS ISS- low hypoglycemia protocol Prophylaxis SCDs Pepcid 20mg po daily Heparin 5000 q8 <Reynaldo Miles - Last Filed: 05/14/18 17:52> Objective - Vital Signs/Intake and Output Vital Signs (last 24 hours): Temp Pulse Resp BP Pulse Ox 97.7 F 69 20 113/68 96 05/14/18 16:00 05/14/18 16:00 05/14/18 16:00 05/14/18 16:00 05/14/18 16:00 - Medications Medications: Current Medications Amlodipine Besylate (Norvasc) 10 mg PO DAILY [facility] Last Admin: 05/14/18 11:13 Dose: 10 mg Aspirin (Aspirin Chewable) 81 mg PO DAILY [facility] Clonidine HCl (Catapres-Tts2 0.2 Mg/24 Hr) 1 patch TD Q7D@1000 [facility] Last Admin: 05/14/18 11:53 Dose: 1 patch Dextrose (Dextrose 50% Inj) 0 ml IV STAT PRN; Protocol PRN Reason: Hypoglycemia Protocol Dextrose (Glutose 15) 0 gm PO ONCE PRN; Protocol PRN Reason: Hypoglycemia Protocol Famotidine (Pepcid) 20 mg PO DAILY [facility] Last Admin: 05/14/18 11:13 Dose: 20 mg Glucagon (Glucagen Diagnostic Kit) 0 mg IM STAT PRN; Protocol PRN Reason: Hypoglycemia Protocol Heparin Sodium (Porcine) (Heparin) 5,000 units SC Q8 [facility] Last Admin: 05/14/18 13:44 Dose: Not Given Dextrose (Dextrose 5% In Water 1000 Ml) 1,000 mls @ 0 mls/hr IV .Q0M PRN; Protocol; Per Protocol PRN Reason: Hypoglycemia Protocol Insulin Aspart (Novolog) 14 unit SC ACTID [facility] Last Admin: 05/14/18 17:41 Dose: Not Given Insulin Aspart (Novolog) 0 unit SC ACHS [facility] Last Admin: 05/14/18 17:40 Dose: Not Given Insulin Glargine (Lantus) 30 unit SC HS [facility] Losartan Potassium (Cozaar) 50 mg PO DAILY [facility] Last Admin: 05/14/18 11:13 Dose: 50 mg Rosuvastatin Calcium (Crestor) 20 mg PO HS [facility] - Labs Labs: 05/14/18 06:40 05/14/18 06:40 Attending/Attestation - Attestation I have personally seen and examined this patient.: Yes I have fully participated in the care of the patient.: Yes I have reviewed all pertinent clinical information, including history, physical exam and plan: Yes Notes (Text): 05/14/18 17:51 Medical attending: Patient was seen and examined by me, reviewed the above note by the chief medical technologist, and agree with the above note. The patient was not in any acute distress we came and saw her. She was asleep and woke up and answer questions when we came and spoke with her. As mentioned previously the patient had a very elevated blood pressure readings earlier. There some concern that she wasn't actively taking her blood pressure medication. Likewise she also has a very elevated blood sugars which are now lower hemoglobin A1c was checked which was remarkably elevated. We'll try to reach out to the patient's senior risk analyst, she also has a multimedia author she's been seen as well notify him as well Thank you very much, Reynaldo Miles
[2018-05-14] MEDS ORDERED: (Novolog) Insulin Aspart, Recombinant 100 u/ml 10 ml vial SC SCH (16:30)
[2018-05-14] MEDS ORDERED: (Novolog) Insulin Aspart, Recombinant 100 u/ml 10 ml vial SC ONE (17:45)
[2018-05-14] MEDS ORDERED: (Lantus) Insulin Glargine, Recombinant SC SCH (22:00)
--- NOTE | 2018-05-14 23:35 | CARD ---
APPROVED REPORT Date of service: 05/13/2018 EKG Measurement Heart [id number] <Conclusion> Normal sinus rhythm Voltage criteria for left ventricular hypertrophy Nonspecific T wave abnormality Abnormal ECG
[2018-05-14 23:51] VITALS: RESP 20
--- NOTE | 2018-05-15 04:47 | CON ---
Copied To: Shreya Pierce MD Attending MD: Shreya Pierce MD DATE: 05/14/2018 ENDOCRINOLOGY CONSULTATION LOCATION: Room 550. 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 She is being referred now for diabetic evaluation because of marked hyperglycemic accelerations as noted thereof. PAST MEDICAL HISTORY: As mentioned above, history of type 2 insulin requiring diabetes, on a combination of Lantus given us 30 units subcu at bedtime daily with Humalog given as 15 units t.i.d. before meals as ordered. History of hypertension and dyslipidemia, history of diabetic retinopathy and polyneuropathy, also history of a previous TIA with no apparent residual neurologic deficits, also history of coronary artery disease and peripheral arterial disease, on vasculopathy. She has a previous gastric band placement done laparoscopically in 2007 with subsequent replacement in 2009 and underwent removal of the gastric band in 2016. She had previous surgical resections for intestinal obstruction with intractable abdominal pain. History of chronic asthmatic bronchitis and possible COPD from nicotine dependence, history of generalized anxiety and depression, and has been on psychotropic medication. FAMILY HISTORY: Positive for hypertension and CVA and with her mom from complications of a stroke and her father had open heart surgery at the age of 77. 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 She admits to previous nicotine dependence for over 20 years, smoking a pack a day, but quit in 1997. REVIEW OF SYSTEMS: As mentioned above, admits to generalized body weakness with episodic bouts of dizziness and lightheadedness, worse on the day of admission, also admits to occasional visual blurring and bifrontal headaches. As mentioned above, admits to sudden onset of precordial chest pain radiating to the right side of the breast with progressive shortness of breath initiated on exertion than at rest. Her oral intake has been variable with nausea, dyspepsia and vague upper abdominal pains. PHYSICAL EXAMINATION: GENERAL: Average built female in no apparent distress. VITAL SIGNS: Blood pressure of 160/100, pulse of 70 beats per minute and regular, temperature 98, and respirations 20, height is 5 feet 4 inches, weight 160 pounds. HEENT: Head normocephalic. Eyes anicteric with pink conjunctivae. Funduscopy not possible at this time. Ears, nose, and throat, otherwise, normal. NECK: Supple. Thyroid gland is normal size. No carotid bruits or cervical adenopathy. CARDIOPULMONARY: Some adynamic precardium. S1 and S2, rapid and regular. LUNGS: Clear to auscultation. ABDOMEN: Flat, soft with positive bowel sounds. EXTREMITIES: No peripheral edema. Pulses are +2 bilaterally. LABORATORY DATA: Her chemistries showed a BUN initially of 18, sodium 140, potassium 4.7, chloride 92, CO2 of 31, glucose 456, and creatinine 1. Her albumin is 4.8, calcium is 9.9. Her hemoglobin A1c is 13.7% which is clearly elevated and indicative of suboptimal metabolic control of a diabetic condition even prior to this admission. Her lipids showed a cholesterol of 215, triglycerides of 159, HDL of 30, and LDL of 133. Her subsequent glucose values have ranged from 234 to 411 mg/dL. ASSESSMENT: This is a 58-year-old female with uncontrolled and decompensated type 2 insulin requiring diabetes presenting here with sudden onset of precordial chest pain and undergoing cardiac workup for acute coronary syndrome as noted. She also has diabetic microvascular complications or retinopathy and polyneuropathy with diabetic macrovascular complications of a possible prior cerebrovascular event with a transient ischemic attack and also coronary artery disease with underlying peripheral arterial disease and vasculopathy. PLAN OF MANAGEMENT: I have discussed with the patient and the staff, we will modify her current insulin regimen and switch her over to a more physiologic baseline bolus insulin drug combination to optimize metabolic control. We will start with Novolog given as 14 units subcutaneous t.i.d. before meals to start today. We will also add basal insulin with Lantus given as 30 units subcutaneous at bedtime daily to start tonight. We will modify the coverage scale to obviate hypoglycemia and detailed orders have been given. We will obtain serum chemistries and supplement accordingly as needed. We will also reinforce the patient on dietary instructions at the time of this admission. We will consider the addition of SGLT2 inhibitors and also DPP-4 oral hypoglycemic therapy as indicated to optimize metabolic control. We will follow. Shreya Pierce MD
[2018-05-15 07:18] LABS: BASO # 0.1 K/uL (0.0-0.2); BASO % 1.1 % (0.0-2.0); EOS # 0.5 K/uL (0.0-0.7); EOS % 6.6 % (0.0-4.0); LYMPH # 2.1 K/uL (1.0-4.3); MEAN CELL VOLUME 81.7 fL (81.0-99.0); MEAN CORPUSCULAR HGB CONC 34.3 g/dL (33.0-37.0); MONO # 0.4 K/uL (0.0-0.8); MONO % 5.4 % (0.0-10.0); NEUT # 4.2 K/uL (1.8-7.0); NEUT % 57.9 % (50.0-75.0); NRBC % 0.1 % (0.0-2.0); RBC 4.27 Mil/uL (3.80-5.20); RED CELL DISTRIBUTION WIDTH 13.4 % (11.5-14.5); WHITE BLOOD COUNT 7.2 K/uL (4.8-10.8)
--- NOTE | 2018-05-15 07:24 | CON ---
Copied To: Mariano Oakes MD Attending MD: Mariano Oakes MD DATE: 05/14/2018 CARDIOLOGY CONSULTATION REASON FOR CONSULTATION: Chest pain, uncontrolled hypertension as well as abnormal EKG. HISTORY OF PRESENT ILLNESS: The patient is a 58-year-old female who has history of hypertension and diabetes mellitus as well as hyperlipidemia, an employee of [employer]. While working her second consecutive shift on the , the patient started to experience headache with chest discomfort as well as shortness of breath and was brought to emergency room. The patient is known to me from prior admissions in the past. The patient underwent cardiac catheterization twice in the past. The most recent cardiac catheterization was in 06/2014; almost four years ago which revealed unremarkable and normal left ventricular systolic function. The patient also underwent a Myoview stress test in 06/2016, almost two years ago which was negative. The patient when evaluated by me this morning was chest pain-free. Her headache has subsided and blood pressure was brought under control. MEDICATIONS: Current medications; clonidine patch 0.2 mg daily, Cozaar 50 mg once a day, heparin 5000 units every 8 hours, Norvasc 10 mg once a day, Pepcid 20 mg once a day beside a Novolog insulin. REVIEW OF SYSTEMS: No nausea or vomiting. No fever or chills. No syncope. PAST MEDICAL HISTORY: History of hypertension, diabetes mellitus, hyperlipidemia, and history of depression in the past. PHYSICAL EXAMINATION GENERAL: The patient is a middle-aged female who does not appear to be in any distress at this time. VITAL SIGNS: Blood pressure 113/68, heart rate 69, temperature 97.9, and respirations 20. HEENT: Normocephalic. NECK: No JVD. CHEST: Clear. HEART: S1 and S2 regular. ABDOMEN: Soft. EXTREMITIES: No edema. LABORATORY DATA: SMA-7: Sodium 139, potassium 3.9, chloride 98, CO2 of 27, glucose 289, BUN 16, creatinine 0.9. Two sets of troponins were negative. Lipid profile; triglycerides 159, total cholesterol 215, LDL cholesterol is 133, are all elevated. HDL cholesterol is 30. Today's hemoglobin and hematocrit are 11.7 and 34.6, white count and platelet count 6.9 and 217 respectively. Chest x-ray was unremarkable. Hemoglobin A1c is 13.7. EKG revealed sinus rhythm at the rate of 73, LVH with repolarization changes, even though the complete reading consider lateral ischemia. Echocardiographic study performed in 06/2016 revealed normal ejection fraction, [id number] mitral insufficiency. ASSESSMENT: 1. Chest pain, myocardial infarction ruled out. 2. Uncontrolled hypertension. 3. Uncontrolled diabetes mellitus. 4. Hyperlipidemia. RECOMMENDATIONS: Continue Cozaar 60 mg daily, subcutaneous heparin 5000 units every 8 hours, Norvasc 10 mg once a day. Start aspirin 81 mg once a day and Crestor 20 mg orally once a day. Obtain an echocardiographic study. I did request endocrine consult by Dr. Pierce for the patient's uncontrolled diabetes mellitus. Mariano Oakes MD
[2018-05-15 07:32] LABS: ALB/GLOB RATIO 1.2 (1.0-2.1); ALBUMIN 3.5 g/dL (3.5-5.0); ALT/SGPT 18 U/L (9-52); AST/SGOT 15 U/L (14-36); BLOOD UREA NITROGEN 19 mg/dL (7-17); CALCIUM 8.8 mg/dl (8.6-10.4); GFR NON-AFRICAN AMERICAN > 60
[2018-05-15] MEDS: (Novolog) Insulin Aspart, Recombinant 100 u/ml 10 ml vial SC SCH ×5 (07:32→17:08)
--- NOTE | 2018-05-15 15:07 | CP.PCM.DIS ---
Provider - Provider Date of Admission: 05/14/18 02:53 Attending physician: Shahab Dean MD Consults: Dr. Oakes Dr. Pierce Time Spent in preparation of Discharge (in minutes): 29 Diagnosis - Discharge Diagnosis (1) Chest pain Status: Acute Priority: High (2) Uncontrolled diabetes mellitus Status: Acute (3) Uncontrolled hypertension Status: Acute Hospital Course - Lab Results Lab Results: Most Recent Lab Values WBC 7.2 K/uL (4.8-10.8) 05/15/18 07:01 RBC 4.27 Mil/uL (3.80-5.20) 05/15/18 07:01 Hgb 12.0 g/dL (11.0-16.0) 05/15/18 07:01 Hct 34.9 % (34.0-47.0) 05/15/18 07:01 MCV 81.7 fL (81.0-99.0) 05/15/18 07:01 MCH 28.0 pg (27.0-31.0) 05/15/18 07:01 MCHC 34.3 g/dL (33.0-37.0) 05/15/18 07:01 RDW 13.4 % (11.5-14.5) 05/15/18 07:01 Plt Count 217 K/uL (130-400) 05/15/18 07:01 MPV 9.0 fL (7.2-11.7) 05/15/18 07:01 Neut % (Auto) 57.9 % (50.0-75.0) 05/15/18 07:01 Lymph % (Auto) 29.0 % (20.0-40.0) 05/15/18 07:01 [place] % (Auto) 5.4 % (0.0-10.0) 05/15/18 07:01 Eos % (Auto) 6.6 % (0.0-4.0) H 05/15/18 07:01 Baso % (Auto) 1.1 % (0.0-2.0) 05/15/18 07:01 Neut # (Auto) 4.2 K/uL (1.8-7.0) 05/15/18 07:01 Lymph # (Auto) 2.1 K/uL (1.0-4.3) 05/15/18 07:01 [place] # (Auto) 0.4 K/uL (0.0-0.8) 05/15/18 07:01 Eos # (Auto) 0.5 K/uL (0.0-0.7) 05/15/18 07:01 Baso # (Auto) 0.1 K/uL (0.0-0.2) 05/15/18 07:01 Sodium 139 mmol/L (132-148) 05/15/18 07:01 Potassium 3.9 mmol/L (3.6-5.2) 05/15/18 07:01 Chloride 99 mmol/L (98-107) 05/15/18 07:01 Carbon Dioxide 30 mmol/L (22-30) 05/15/18 07:01 Anion Gap 14 (10-20) 05/15/18 07:01 BUN 19 mg/dL (7-17) H 05/15/18 07:01 Creatinine 0.9 mg/dL (0.7-1.2) 05/15/18 07:01 Est GFR ( Amer) > 60 05/15/18 07:01 Est GFR (Non-Af Amer) > 60 05/15/18 07:01 POC Glucose (mg/dL) 227 mg/dL (65-110) H 05/15/18 06:02 Random Glucose 222 mg/dL (65-105) H 05/15/18 07:01 Hemoglobin A1c 13.7 % (4.2-6.5) H 05/15/18 07:01 Calcium 8.8 mg/dl (8.6-10.4) 05/15/18 07:01 Phosphorus 3.4 mg/dL (2.5-4.5) 05/15/18 07:01 Magnesium 1.7 mg/dL (1.6-2.3) 05/15/18 07:01 Total Bilirubin 0.4 mg/dL (0.2-1.3) 05/15/18 07:01 AST 15 U/L (14-36) 05/15/18 07:01 ALT 18 U/L (9-52) 05/15/18 07:01 Alkaline Phosphatase 93 U/L (38-126) 05/15/18 07:01 Total Creatine Kinase 69 U/L (30-135) 05/14/18 11:47 CK-MB (Mass) < 0.22 ng/mL (0.0-3.38) 05/14/18 11:47 Troponin I < 0.0120 ng/mL (0.00-0.120) 05/14/18 11:47 Total Protein 6.5 g/dL (6.3-8.3) 05/15/18 07:01 Albumin 3.5 g/dL (3.5-5.0) 05/15/18 07:01 Globulin 3.0 gm/dL (2.2-3.9) 05/15/18 07:01 Albumin/Globulin Ratio 1.2 (1.0-2.1) 05/15/18 07:01 Triglycerides 159 mg/dL (0-149) H D 05/14/18 06:40 Cholesterol 215 mg/dL (0-199) H 05/14/18 06:40 LDL Cholesterol Direct 133 mg/dL (0-129) H 05/14/18 06:40 HDL Cholesterol 30 mg/dL (30-70) 05/14/18 06:40 TSH 3rd Generation 0.78 mIU/L (0.46-4.68) 05/15/18 07:01 B-Hydroxybutyrate 0.11 mM (0.02-0.27) 05/13/18 23:29 - Hospital Course Hospital Course: Patient was evaluated and treated at [facility] from 05/13-05/15. While in the ED, patient had labs drawn, EKG, chest x-ray; all negative for acute event. Patient's hypertension was treated with medication, and hyperglycemia treated with insulin. Dr. Oakes was consulted for cardiac evaluation. Dr. Pierce was consulted for endocrine evaluation. Patient received a cardiac echo to be reviewed at follow up with Dr. Oakes. Patient is advised to follow up with PMD, Dr. Pierce, and Dr. Oakes within 1 week of discharge. Patient is advised to return to the ED with any worsening of symptoms. HPI on admission: "HPI: Patient is a 58 y/o F with PMHx of HTN, DMII, and anxiety who presents to the ED for chest pain which started at 7pm. Patient was at work when she started to feel a pressure like pain in the middle of her chest that radiated into and below her right breast. Patient said the pain was 5/10 and slowly increased. Patient had one of the nurses check her blood pressure and it was 192 /112 so she came to the ER. Patient denies any fevers, chills, headache, blurry vision, palpitations, shortness of breath, abdominal pain, nausea, vomiting, constipation, diarrhea, or dysuria. Patient has had no recent travel. 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 Of note patient usually changes her Clonidine patch weekly, but has not had one on for about 2 days." Discharge Exam - Head Exam Head Exam: ATRAUMATIC, NORMAL INSPECTION, NORMOCEPHALIC - Eye Exam Eye Exam: EOMI, Normal appearance Pupil Exam: PERRL - ENT Exam ENT Exam: Mucous Membranes Moist, Normal Exam - Neck Exam Neck exam: Normal Inspection - Respiratory Exam Respiratory Exam: Clear to PA & Lateral, NORMAL BREATHING PATTERN, UNREMARKABLE - Cardiovascular Exam Cardiovascular Exam: REGULAR RHYTHM, +S1, +S2. absent: Systolic Murmur - GI/Abdominal Exam GI & Abdominal Exam: Normal Bowel Sounds, Soft, Unremarkable. absent: Distended , Tenderness - Extremities Exam Extremities exam: normal capillary refill, normal inspection, pedal pulses present - Neurological Exam Neurological exam: Alert, Normal Gait, Oriented x3 - Psychiatric Exam Psychiatric exam: Normal Affect, Normal Mood - Skin Skin Exam: Dry, Intact, Normal Color, Warm Discharge Plan - Discharge Medications Prescriptions: amLODIPine [Norvasc] 10 mg PO DAILY #30 tab Atorvastatin [Lipitor] 10 mg PO DIN #60 tab cloNIDine 0.2 mg/24 hr [catapres-TTS2 0.2 mg/24 hr] 0.2 mg TD QWK #4 patch Insulin Detemir [Levemir] 30 unit SC HS #1 vial Insulin Lispro Mix 75/25 [HumaLOG Mix 75/25] 15 units SC ACBD #1 vial Losartan [Cozaar] 50 mg PO DAILY #30 tab - Follow Up Plan Condition: FAIR Disposition: HOME/ ROUTINE Instructions: Insulin Detemir, High Blood Pressure (DC), Diabetes Diet , Diabetes Type 2 (DC), Amlodipine, Atorvastatin, Clonidine, Losartan, Insulin Lispro Additional Instructions: Patient is stable for discharge home. Patient is advised to follow up with PMD within 1 week of discharge. Patient is advised to follow up with Dr. Pierce and Dr. Oakes within 1 week of discharge. Patient is being discharged home with prescriptions for medications to be filled and taken as prescribed. Patient is advised to return to the ED with any worsening of symptoms. Referrals: Shreya Pierce MD [Medical Doctor] - Mariano Oakes MD [Staff Provider] -
[2018-05-15] MEDS ORDERED: (Novolog) Insulin Aspart, Recombinant 100 u/ml 10 ml vial SC SCH (16:30)
[2018-05-15 16:52] VITALS: BP 135/69; PULSE 79; TEMP 97.7; O2SAT 96
--- NOTE | 2018-05-15 19:08 | PN ---
Copied To: Shreya Pierce MD Attending MD: Shreya Pierce MD DATE: 05/15/2018 ENDO FOLLOWUP NOTE LOCATION: In room 550. SUBJECTIVE: This is a 58-year-old female with recent uncontrolled type 2 insulin-requiring diabetes, presenting here with acute coronary syndrome with undergoing cardiac workup and management at this time and is also being followed closely for metabolic management. Her glycemic levels are fluctuating as noted and the glucose values have ranged from 227 to 296 mg/dL. LABORATORY DATA: Her latest chemistry showed a BUN of 19, sodium 139, potassium 3.9, chloride 99, CO2 of 30, glucose 222, and creatinine 0.9. Her hemoglobin A1c is 13.7%, which is extremely elevated and indicative of suboptimal metabolic control of her diabetic condition even prior to this admission. ASSESSMENT: This is a 58-year-old female with uncontrolled and decompensated type 2 insulin-requiring diabetes with marked hyperglycemic accelerations and suboptimal metabolic control with very poor adherence to the insulin regimen and also to lifestyle modifications, especially with her dietary patterns. So she also was diabetic. Microvascular complications are retinopathy and polyneuropathy with macrovascular complications of cerebrovascular disease and coronary artery disease with underlying peripheral arterial disease and vasculopathy. PLAN OF MANAGEMENT: We will modify once again her basal and bolus insulin regimen to optimize metabolic control. We will increase her Lantus to 34 units subcu at bedtime daily to start tonight. We will also continue the modified low-dose correction scale using NovoLog insulin as given. Moreover, we will also increase her prandial or mealtime insulin requirements with NovoLog to be given at 12 units subcu t.i.d. before meals to start today as ordered. We will obtain serial chemistries and supplement accordingly as needed. We will follow. Shreya Pierce MD
--- NOTE | 2018-05-15 19:38 | PN ---
Copied To: Mariano Oakes MD Attending MD: Mariano Oakes MD DATE: 05/15/2018 SUBJECTIVE: The patient denies chest pain or shortness of breath. PHYSICAL EXAMINATION: VITAL SIGNS: Blood pressure 135/69, heart rate 79, temperature 97.7, and respirations 20. HEENT: Normocephalic. CHEST: Clear. HEART: Sounds are regular. EXTREMITIES: No edema. LABORATORY DATA: Today's SMA-7; sodium 139, potassium 3.9, chloride 99, CO2 of 30, glucose 222, BUN 19, and creatinine 0.9. TSH level is within normal limits. Today's hemoglobin and hematocrit 12 and 34.9, white count and platelet count are within normal limits. I did review the echocardiography study which revealed mild concentric LVH with normal ejection fraction which was measured at 58%. Trace to mild mitral insufficiency was noted. ASSESSMENT: 1. Chest pain, myocardial infarction is ruled out. 2. Uncontrolled hypertension. 3. Uncontrolled diabetes mellitus. 4. Hyperlipidemia. RECOMMENDATIONS: Continue aspirin 81 mg once a day, clonidine patch 0.2 mg daily, Cozaar 50 mg once a day, Norvasc 10 mg once a day, and Pepcid 20 mg once a day. The patient was evaluated by Dr. Pierce, Endocrinology, yesterday. The case was discussed with Dr. Reynaldo Miles, the hospitalist, and the patient can be discharged from the cardiac point of view today. Mariano Oakes MD
[2018-05-15] MEDS ORDERED: (Lantus) Insulin Glargine, Recombinant SC SCH (22:00)
--- NOTE | 2018-05-15 23:15 | CARD ---
APPROVED REPORT Date of service: 05/15/2018 EXAM: Two-dimensional and M-mode echocardiogram with Doppler and color Doppler. Other Information Quality : GoodRhythm : INDICATION Dyspnea Chest Pain RISK FACTORS Hypertension Diabetes 2D DIMENSIONS IVSd1.3 (0.7-1.1cm)LVDd4.3 (3.9-5.9cm) PWd1.4 (0.7-1.1cm)LVDs3.0 (2.5-4.0cm) FS (%) 30.4 %LVEF (%)58.1 (>50%) M-Mode DIMENSIONS Left Atrium (MM)3.61 (2.5-4.0cm)IVSd1.04 (0.7-1.1cm) Aortic Root3.19 (2.2-3.7cm)LVDd5.11 (4.0-5.6cm) Aortic Cusp Exc.2.01 (1.5-2.0cm)PWd1.02 (0.7-1.1cm) FS (%) 32 %LVDs3.45 (2.0-3.8cm) LVEF (%)60 (>50%) Mitral Valve MV E Xqimsgim95.3cm/sMV A Biczgyzd290.4cm/sE/A ratio0.9 TDI E/Lateral E'0.0E/Medial E'0.0 Tricuspid Valve TR Peak Ngrbaqzb420gx/sTR Peak Gr.[id number] LEFT VENTRICLE The left ventricle is normal size. There is mild concentric left ventricular hypertrophy. Left ventricle systolic function is normal. The Ejection Fraction is 55-60%. There is normal LV segmental wall motion. Tissue Doppler imaging reveals abnormal left ventricular diastolic dysfunction. RIGHT VENTRICLE The right ventricle is normal size. There is normal right ventricular wall thickness. The right ventricular systolic function is normal. ATRIA The left atrium size is normal. The right atrium size is normal. The interatrial septum is intact with no evidence for an atrial septal defect. AORTIC VALVE The aortic valve is normal in structure. No aortic regurgitation is present. There is no aortic valvular stenosis. MITRAL VALVE The mitral valve is normal in structure. There is no evidence of mitral valve prolapse. There is no mitral valve stenosis. Mitral regurgitation is mild. TRICUSPID VALVE The tricuspid valve is normal in structure. There is mild tricuspid regurgitation. Right ventricular systolic pressure is estimated at less than 30 mmHg. There is no pulmonary hypertension. PULMONIC VALVE The pulmonic valve is not well visualized. There is mild pulmonic valvular regurgitation. GREAT VESSELS The aortic root is normal in size. PERICARDIAL EFFUSION There is no significant pericardial effusion. <Conclusion> Left ventricle systolic function is normal. The Ejection Fraction is 55-60%. Hypertensive heart disease. Diastolic dysfunction. No aortic regurgitation is present. Mitral regurgitation is mild. There is mild tricuspid regurgitation. There is no pulmonary hypertension. There is mild pulmonic valvular regurgitation.
--- NOTE | 2018-05-16 02:30 | CARD ---
APPROVED REPORT Date of service: 05/14/2018 EKG Measurement Heart [id number] <Conclusion> Normal sinus rhythm Voltage criteria for left ventricular hypertrophy T wave abnormality, consider lateral ischemia Prolonged QT Abnormal ECG
== END 2018-05-15 18:50 | disposition home or self-care (01) ==
LOC: C.ER 21:54 → C.9E 05-14 02:53 → C.5S 05-14 09:20
PROVIDERS: ADMIT Internal Medicine; ATTEND Internal Medicine
DX: I10 Essential (primary) hypertension (principal); E78.5 Hyperlipidemia, unspecified; E11.65 Type 2 diabetes mellitus with hyperglycemia; E11.51 Type 2 diabetes mellitus with diabetic peripheral angiopathy without gangrene; E11.42 Type 2 diabetes mellitus with diabetic polyneuropathy; F43.10 Post-traumatic stress disorder, unspecified; I25.10 Atherosclerotic heart disease of native coronary artery without angina pectoris; J44.9 Chronic obstructive pulmonary disease, unspecified; Z86.73 Personal history of transient ischemic attack (TIA), and cerebral infarction without residual deficits; Z87.891 Personal history of nicotine dependence; Z98.84 Bariatric surgery status
CPT/HCPCS: 36415; 71046; 80053; 80061; 82009; 82553; 82948; 83036; 83735; 84100; 84443; 84484; 85025; 93005; 93306; 96360; 96372; 99285; G0378; J1644; J7030

== ENCOUNTER 2018-06-21 09:23 | Emergency (ER) | payer OTHER, BC ==
[2018-06-21 09:24] VITALS: BMI 28.8
--- NOTE | 2018-06-21 09:47 | C.PDOC ---
History Of Present Illness 58 year old female patient with hx of HTN and DM presents to the ER c/o light headedness, dizziness, slight nausea and slight headache. Patient reports she felt nauseous and dizzy at 7:30 AM and had a light breakfast. Patient states the symptoms did not go away when she arrived at work. She later felt uncomfortable in her chest and light headed with headache. Patient denies drinking water this morning, no night sweats, no vomiting, no constipation, no dysuria, no hematochezia, no fall or trauma. Patient notes she has an allergy to percocet. Time Seen by Provider: 06/21/18 09:40 Chief Complaint (Nursing): Dizziness/Lightheaded History Per: Patient History/Exam Limitations: no limitations Current Symptoms Are (Timing): Still Present Past Medical History Reviewed: Historical Data, Nursing Documentation, Vital Signs - Medical History PMH: Anemia, Anxiety, Arthritis, Asthma, Depression, Diabetes, Gastritis, HTN, Hypercholesterolemia, Post Traumatic Stress Disorder, TIA Surgical History: Endoscopy - [facility] Procedures CYSTOSCOPY NEC (12/14/13) DX ULTRASOUND-HEART (09/20/14) MONITORING NOS (12/02/97) INSPECTION OF ABDOMINAL WALL, PERC ENDO APPROACH (10/15/15) LAPAROSCOP LYSIS-PERITONEAL ADHES (12/30/13) LAPAROSCOP REMOVE OVARIES/TUBES (12/30/13) LAPAROSCOPIC ROBOTIC ASSISTED PROCEDURE (12/30/13) LEFT HEART CARDIAC CATH (06/24/14) LOW CERVICAL (12/02/97) LT HEART ANGIOCARDIOGRAM (06/24/14) MEDICATION MANAGEMENT (12/10/16) RELEASE LARGE INTESTINE, OPEN APPROACH (10/15/15) RELEASE PERITONEUM, OPEN APPROACH (10/15/15) REMOVAL OF EXTRALUMINAL DEVICE FROM STOMACH, OPEN APPROACH (10/15/15) RETROGRADE PYELOGRAM (12/14/13) UTERINE LES DESTRUCT NEC (12/02/97) Family History: States: Diabetes - Social History Hx Tobacco Use: No Hx Alcohol Use: No Hx Substance Use: No - Immunization History Hx Tetanus Toxoid Vaccination: No Hx Influenza Vaccination: Yes Hx Pneumococcal Vaccination: No Review Of Systems Constitutional: Negative for: Sweats, Other (drank water; fall; trauma) Cardiovascular: Positive for: Light Headedness Gastrointestinal: Positive for: Nausea. Negative for: Vomiting, Constipation, Hematochezia Genitourinary: Negative for: Dysuria Neurological: Positive for: Headache, Dizziness Physical Exam - Physical Exam Appears: Non-toxic, No Acute Distress Skin: Warm, Dry Head: Normacephalic Eye(s): bilateral: Normal Inspection, PERRL, EOMI Oral Mucosa: Moist Neck: Trachea Midline, Supple, Other (No meningeal signs- negative kernig's and brudzinskis) Chest: Symmetrical Cardiovascular: Rhythm Regular, No Friction Rub Respiratory: No Rales, No Rhonchi, No Wheezing Gastrointestinal/Abdominal: Soft, No Tenderness, No Distention Back: No CVA Tenderness Extremity: No Pedal Edema, No Swelling Extremity: Bilateral: Normal Color And Temperature Pulses: Left Dorsalis Pedis: Normal (2+), Right Dorsalis Pedis: Normal (2+) Neurological/Psych: Oriented x3, Normal Cognition, Normal Cranial Nerves, Normal Motor, Other (normal strength ) Gait: Steady ED Course And Treatment - Laboratory Results Result Diagrams: 06/21/18 11:04 06/21/18 11:04 ECG: Interpreted By Me, Viewed By Me ECG Rhythm: Sinus Rhythm (normal) ECG Interpretation: Normal, No Acute Changes Rate From EC - Other Rad CXR X-Ray: Interpreted by Me, Viewed By Me Interpretation: no infiltration - CT Scan/US CT head Other Rad Studies (CT/US): Read By Radiologist, Radiology Report Reviewed CT/US Interpretation: Accession No. : [id number]. Patient Name / ID : KEVYN ANDERSON / [id number]. Exam Date : 06/21/2018 11:17:47 ( Approved ). Study Comment : Sex / Age : F / 58Y. Creator : Josse Torres MD. Dictator : Josse Torres MD. Health Claims Examiner : Fireproof Door Maker : Josse Torres MD. Approver2 : Report Date : 06/21/2018 11:27:31. My Comment : . Date of service: 06/21/2018. PROCEDURE: CT HEAD WITHOUT CONTRAST. HISTORY: Headache. COMPARISON: Comparison made with prior CT scan 10/27/2017. TECHNIQUE: Axial computed tomography images were obtained through the head/brain without intravenous contrast. Radiation dose: Total exam DLP = 1201.89 mGy-cm. This CT exam was performed using one or more of the following dose reduction techniques: Automated exposure control, adjustment of the mA and/or kV according to patient size, and/or use of iterative reconstruction technique. FINDINGS: HEMORRHAGE: No acute parenchymal, subarachnoid or extra- axial hemorrhage. BRAIN: No evidence of large acute infarct. Questionable minimal chronic periventricular microvascular ischemic changes.. No obvious parenchymal nor extra-axial mass or collection seen on this noncontrast study. Mild age-appropriate volume loss. VENTRICLES: No obstructive the hydrocephalus. CALVARIUM: Unremarkable. PARANASAL SINUSES: Unremarkable as visualized. No significant inflammatory changes. MASTOID AIR CELLS: Unremarkable as visualized. No inflammatory changes. OTHER FINDINGS: None. IMPRESSION: No acute intracranial hemorrhage or large acute infarct. Suspect minimal chronic periventricular white matter ischemic changes. Mild age-appr opriate volume loss. Medical Decision Making Medical Decision Makin old female p/w lightheadedness, well appearing on exam, w/ out abnl neuro exams. No syncope or presyncopal episodes. No dark or bloody stools. Likely dehydration related given worse with standing. No vertigo or cerebellar signs. Impression: dehydrated plans: -- CT scan head -- blood work -- CXR -- IV fluids Reassess: labs, imaging unremarkable. Patient is resting comfortably, is tolerating PO, symptoms improved, no neurologic deficit, photophobia, rash, fever, or nuchal rigidity. Patient was instructed to follow up with clinic in 1-2 days. Disposition - Disposition Referrals: Ethan Linder MD [Staff Provider] - Bobby Luo MD [Staff Provider] - [facility] [Outside] Disposition: HOME/ ROUTINE Disposition Time: 13:30 Condition: GOOD Instructions: Syncope (Fainting), Dehydration, Adult (DC) Forms: [employer] [facility] (Wolof) - Clinical Impression Clinical Impression: Dizziness, Lightheaded - Scribe Statement The provider has reviewed the documentation as recorded by the Scribe Segura Do Provider Attestation: All medical record entries made by the Hima were at my direction and personally dictated by me. I have reviewed the chart and agree that the record accurately reflects my personal performance of the history, physical exam, medical decision making, and the department course for this patient. I have also personally directed, reviewed, and agree with the discharge instructions and disposition.
[2018-06-21] MEDS ORDERED: Sodium Chloride 0.9% 1,000 ML IV ONE (10:40)
[2018-06-21] MEDS ORDERED: Sodium Chloride 0.9% 1,000 ML ONE (11:08)
[2018-06-21 11:09] LABS: BASO # 0.1 K/uL (0.0-0.2); EOS # 0.5 K/uL (0.0-0.7); EOS % 6.9 % (0.0-4.0); HEMOGLOBIN 13.3 g/dL (11.0-16.0); LYMPH # 1.4 K/uL (1.0-4.3); LYMPH % 21.5 % (20.0-40.0); MEAN CELL VOLUME 81.7 fL (81.0-99.0); MEAN CORPUSCULAR HEMOGLOBIN 27.4 pg (27.0-31.0); MEAN CORPUSCULAR HGB CONC 33.6 g/dL (33.0-37.0); MEAN PLATELET VOLUME 8.7 fL (7.2-11.7); MONO # 0.5 K/uL (0.0-0.8); MONO % 8.2 % (0.0-10.0); NEUT # 4.1 K/uL (1.8-7.0); NEUT % 62.4 % (50.0-75.0); RBC 4.86 Mil/uL (3.80-5.20); WHITE BLOOD COUNT 6.6 K/uL (4.8-10.8)
[2018-06-21 11:23] LABS: ALB/GLOB RATIO 1.2 (1.0-2.1); ALBUMIN 4.2 g/dL (3.5-5.0); ALT/SGPT 28 U/L (9-52); AST/SGOT 16 U/L (14-36); BLOOD UREA NITROGEN 16 mg/dL (7-17); CALCIUM 9.5 mg/dl (8.6-10.4); GFR NON-AFRICAN AMERICAN > 60
--- NOTE | 2018-06-21 11:28 | CT ---
Date of service: 06/21/2018 PROCEDURE: CT HEAD WITHOUT CONTRAST. HISTORY: Headache COMPARISON: Comparison made with prior CT scan 10/27/2017 TECHNIQUE: Axial computed tomography images were obtained through the head/brain without intravenous contrast. Radiation dose: Total exam DLP = 1201.89 mGy-cm. This CT exam was performed using one or more of the following dose reduction techniques: Automated exposure control, adjustment of the mA and/or kV according to patient size, and/or use of iterative reconstruction technique. FINDINGS: HEMORRHAGE: No acute parenchymal, subarachnoid or extra-axial hemorrhage. BRAIN: No evidence of large acute infarct. Questionable minimal chronic periventricular microvascular ischemic changes.. No obvious parenchymal nor extra-axial mass or collection seen on this noncontrast study. Mild age-appropriate volume loss. VENTRICLES: No obstructive the hydrocephalus. CALVARIUM: Unremarkable. PARANASAL SINUSES: Unremarkable as visualized. No significant inflammatory changes. MASTOID AIR CELLS: Unremarkable as visualized. No inflammatory changes. OTHER FINDINGS: None. IMPRESSION: No acute intracranial hemorrhage or large acute infarct. Suspect minimal chronic periventricular white matter ischemic changes. Mild age-appropriate volume loss.
[2018-06-21 14:22] VITALS: BP 174/95; PULSE 88; RESP 18; TEMP 98.9; O2SAT 100
--- NOTE | 2018-06-21 15:16 | RAD ---
Date of service: 06/21/2018 HISTORY: lightheaded COMPARISON: The comparison chest 05/13/2018 TECHNIQUE: Chest PA and lateral FINDINGS: LUNGS: Mild bibasilar atelectasis. PLEURA: No significant pleural effusion identified. No pneumothorax apparent. CARDIOVASCULAR: Heart appears mildly enlarged. OSSEOUS STRUCTURES: Mild degenerative spondylosis of the thoracic spine. Mild degenerative changes of both shoulder girdles. VISUALIZED UPPER ABDOMEN: Normal. OTHER FINDINGS: None. IMPRESSION: Mild bibasilar atelectasis
--- NOTE | 2018-06-23 22:21 | CARD ---
APPROVED REPORT Date of service: 06/21/2018 EKG Measurement Heart [id number] <Conclusion> Normal sinus rhythm Voltage criteria for left ventricular hypertrophy Abnormal ECG
== END 2018-06-21 14:43 | disposition home or self-care (01) ==
LOC: C.ER 09:23
DX: R42 Dizziness and giddiness (principal); E11.9 Type 2 diabetes mellitus without complications; E78.00 Pure hypercholesterolemia, unspecified; I10 Essential (primary) hypertension
CPT/HCPCS: 70450; 71046; 80053; 83735; 84484; 85025; 93005; 96360; 96361; 99285; J7030

== ENCOUNTER 2018-11-24 11:02 | Emergency (ER) | payer OTHER, BC ==
[2018-11-24 11:02] VITALS: BMI 28.3
[2018-11-24 11:23] VITALS: RESP 15
[2018-11-24] MEDS ORDERED: Aspirin 325 mg EC Tablets PO STA (12:01)
[2018-11-24] MEDS ORDERED: Morphine 4 MG/ML VIAL IV STA (12:18)
[2018-11-24] MEDS ORDERED: Morphine 4 MG/ML VIAL ONE (12:23)
--- NOTE | 2018-11-24 12:30 | RAD ---
HISTORY: chest pain COMPARISON: Chest x-ray performed 06/21/18 TECHNIQUE: Chest, one view. FINDINGS: Examination limited by habitus. LUNGS: No focal consolidation. Please note that chest x-ray has limited sensitivity for the detection of pulmonary masses. PLEURA: No significant pleural effusion identified. No definite pneumothorax . CARDIOVASCULAR: Heart size appears top normal. Atherosclerotic calcifications of the aorta. OSSEOUS STRUCTURES: Degenerative changes. VISUALIZED UPPER ABDOMEN: Unremarkable. OTHER FINDINGS: None. IMPRESSION: No focal consolidation.
[2018-11-24 12:36] LABS: BASO # 0.1 K/uL (0.0-0.2); BASO % 1.1 % (0.0-2.0); EOS # 0.3 K/uL (0.0-0.7); EOS % 4.5 % (0.0-4.0); LYMPH # 1.8 K/uL (1.0-4.3); LYMPH % 25.9 % (20.0-40.0); MEAN CELL VOLUME 83.6 fL (81.0-99.0); MEAN CORPUSCULAR HEMOGLOBIN 27.3 pg (27.0-31.0); MEAN CORPUSCULAR HGB CONC 32.7 g/dL (33.0-37.0); MEAN PLATELET VOLUME 9.7 fL (7.2-11.7); MONO # 0.5 K/uL (0.0-0.8); MONO % 7.4 % (0.0-10.0); NEUT # 4.2 K/uL (1.8-7.0); NEUT % 61.1 % (50.0-75.0); NRBC % 0.1 % (0.0-2.0); RBC 4.77 Mil/uL (3.80-5.20); RED CELL DISTRIBUTION WIDTH 13.7 % (11.5-14.5); WHITE BLOOD COUNT 6.9 K/uL (4.8-10.8)
--- NOTE | 2018-11-24 13:03 | C.PDOC ---
History Of Present Illness 58 y/o female with a PMHx of HTN and DM, presents to the ED complaining of sharp left-sided pleuritic chest pain for the past hour. Pain is constant, however worse with deep inspiration. Of note patient was recently admitted and had cardiac work-up at [place], and had a failed tress test. States she is due for cardiac cath on (11/27). Patient otherwise denies any SOB, dizziness, visual changes, palpitations, headache, or lightheadedness. On arrival, BP is 200/100. Patient has chronic hypertension, and wears a clonidine patch. Reports compliance with medications. Time Seen by Provider: 11/24/18 11:47 Chief Complaint (Nursing): Chest Pain History Per: Patient History/Exam Limitations: no limitations Onset/Duration Of Symptoms: Hrs Current Symptoms Are (Timing): Still Present Quality: Sharp Exacerbating Factors: Deep Breathing Alleviating Factors: None Additional History Per: Prior Records Past Medical History Reviewed: Historical Data, Nursing Documentation, Vital Signs Vital Signs: Last Vital Signs Temp 98.3 F 11/24/18 11:10 Pulse 81 11/24/18 11:10 Resp 15 11/24/18 11:10 BP 210/100 H 11/24/18 11:10 Pulse Ox 99 11/24/18 11:10 - Medical History PMH: Anemia, Anxiety, Arthritis, Asthma, CHF, Depression, Diabetes, Gastritis, HTN, Hypercholesterolemia, Post Traumatic Stress Disorder, TIA Denies: Hepatitis, Chronic Kidney Disease Surgical History: Endoscopy Denies: Pacemaker - [facility] Procedures CYSTOSCOPY NEC (12/14/13) DX ULTRASOUND-HEART (09/20/14) MONITORING NOS (12/02/97) INSPECTION OF ABDOMINAL WALL, PERC ENDO APPROACH (10/15/15) LAPAROSCOP LYSIS-PERITONEAL ADHES (12/30/13) LAPAROSCOP REMOVE OVARIES/TUBES (12/30/13) LAPAROSCOPIC ROBOTIC ASSISTED PROCEDURE (12/30/13) LEFT HEART CARDIAC CATH (06/24/14) LOW CERVICAL (12/02/97) LT HEART ANGIOCARDIOGRAM (06/24/14) MEDICATION MANAGEMENT (12/10/16) RELEASE LARGE INTESTINE, OPEN APPROACH (10/15/15) RELEASE PERITONEUM, OPEN APPROACH (10/15/15) REMOVAL OF EXTRALUMINAL DEVICE FROM STOMACH, OPEN APPROACH (10/15/15) RETROGRADE PYELOGRAM (12/14/13) UTERINE LES DESTRUCT NEC (12/02/97) Family History: States: Diabetes - Social History Hx Tobacco Use: No Hx Alcohol Use: No Hx Substance Use: No - Immunization History Hx Tetanus Toxoid Vaccination: No Hx Influenza Vaccination: Yes Hx Pneumococcal Vaccination: No ED Course And Treatment - Laboratory Results Result Diagrams: 11/24/18 12:00 O2 Sat by Pulse Oximetry: 99 Disposition - Disposition
--- NOTE | 2018-11-24 13:05 | C.PDOC ---
History Of Present Illness 58 y/o female with a PMHx of HTN and DM, presents to the ED complaining of sharp left-sided pleuritic chest pain for the past hour. Pain is constant, however worse with deep inspiration. Of note patient was recently admitted and had cardiac work-up at [place], and had a failed tress test. States she is due for cardiac cath on (11/27). Patient otherwise denies any SOB, dizziness, visual changes, palpitations, headache, or lightheadedness. On arrival, BP is 200/100. Patient has chronic hypertension, and wears a clonidine patch. Reports compliance with medications. Time Seen by Provider: 11/24/18 11:47 Chief Complaint (Nursing): Chest Pain History Per: Patient History/Exam Limitations: no limitations Onset/Duration Of Symptoms: Hrs (1) Current Symptoms Are (Timing): Still Present Severity: Moderate Quality: Sharp Exacerbating Factors: Deep Breathing Alleviating Factors: None Additional History Per: Prior Records Past Medical History Reviewed: Historical Data, Nursing Documentation, Vital Signs Vital Signs: Last Vital Signs Temp 98.3 F 11/24/18 11:10 Pulse 81 11/24/18 11:10 Resp 15 11/24/18 11:10 BP 210/100 H 11/24/18 11:10 Pulse Ox 99 11/24/18 13:01 - Medical History PMH: Anemia, Anxiety, Arthritis, Asthma, CHF, Depression, Diabetes, Gastritis, HTN, Hypercholesterolemia, Post Traumatic Stress Disorder, TIA Denies: Hepatitis, Chronic Kidney Disease Surgical History: Endoscopy Denies: Pacemaker - [facility] Procedures CYSTOSCOPY NEC (12/14/13) DX ULTRASOUND-HEART (09/20/14) MONITORING NOS (12/02/97) INSPECTION OF ABDOMINAL WALL, PERC ENDO APPROACH (10/15/15) LAPAROSCOP LYSIS-PERITONEAL ADHES (12/30/13) LAPAROSCOP REMOVE OVARIES/TUBES (12/30/13) LAPAROSCOPIC ROBOTIC ASSISTED PROCEDURE (12/30/13) LEFT HEART CARDIAC CATH (06/24/14) LOW CERVICAL (12/02/97) LT HEART ANGIOCARDIOGRAM (06/24/14) MEDICATION MANAGEMENT (12/10/16) RELEASE LARGE INTESTINE, OPEN APPROACH (10/15/15) RELEASE PERITONEUM, OPEN APPROACH (10/15/15) REMOVAL OF EXTRALUMINAL DEVICE FROM STOMACH, OPEN APPROACH (10/15/15) RETROGRADE PYELOGRAM (12/14/13) UTERINE LES DESTRUCT NEC (12/02/97) Family History: States: Diabetes - Social History Hx Tobacco Use: No Hx Alcohol Use: No Hx Substance Use: No - Immunization History Hx Tetanus Toxoid Vaccination: No Hx Influenza Vaccination: Yes Hx Pneumococcal Vaccination: No Review Of Systems Constitutional: Negative for: Fever, Chills, Weakness Eyes: Negative for: Vision Change Cardiovascular: Positive for: Chest Pain. Negative for: Palpitations, Light Headedness Respiratory: Negative for: Cough, Shortness of Breath Gastrointestinal: Negative for: Nausea, Vomiting, Abdominal Pain, Diarrhea Musculoskeletal: Negative for: Back Pain Neurological: Negative for: Headache, Dizziness Physical Exam - Physical Exam Appears: Non-toxic, No Acute Distress, Other (Appears uncomfortable) Skin: Normal Color, Warm, No Diaphoretic Head: Atraumatic, Normacephalic Eye(s): bilateral: Normal Inspection (no scleral icterus), PERRL, EOMI Oral Mucosa: Moist Neck: Normal ROM Chest: Symmetrical, Other (reports increased pain when taking a deep breath) Cardiovascular: Rhythm Regular, No Murmur Respiratory: No Rhonchi, No Stridor, No Wheezing, Other (Lungs clear bilaterally, moving air well) Gastrointestinal/Abdominal: Soft, No Tenderness, No Distention Extremity: Bilateral: Atraumatic, Normal Color And Temperature, Normal ROM Pulses: Left Radial: Normal, Right Radial: Normal Neurological/Psych: Oriented x3, Normal Cranial Nerves Gait: Steady ED Course And Treatment - Laboratory Results Result Diagrams: 11/24/18 12:00 O2 Sat by Pulse Oximetry: 99 (RA) Pulse Ox Interpretation: Normal - Other Rad CXR X-Ray: Read By Radiologist Interpretation: Accession No. : [id number]. Patient Name / ID : KEVYN ANDERSON / [id number]. Exam Date : 11/24/2018 12:13:02 ( Approved ). Study Comment : Sex / Age : F / 58Y. Creator : Vania Veras MD. Dictator : Vania Veras MD. Nutrition Internship : Cherry Cutter : Vania Veras MD. Approver2 : Report Date : 11/24/2018 12:27:14. My Comment : * . HISTORY: chest pain. COMPARISON: Chest x-ray performed 06/21/18. TECHNIQUE: Chest, one view. FINDINGS: Examination limited by habitus. LUNGS: No focal consolidation. Please note that chest x-ray has limited sensitivity for the detection of pulmonary masses. PLEURA: No significant pleural effusion identified. No definite pneumothorax . CARDIOVASCULAR: Heart size appears top normal. Atherosclerotic calcifications of the aorta. OSSEOUS STRUCTURES: Degenerative changes. VISUALIZED UPPER ABDOMEN: Unremarkable. OTHER FINDINGS: None. IMPRESSION: No focal consolidation. 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 - Scribe Statement The provider has reviewed the documentation as recorded by the Scribe Leslie Milian All medical record entries made by the Scribe were at my direction and personally dictated by me. I have reviewed the chart and agree that the record accurately reflects my personal performance of the history, physical exam, medic al decision making, and the department course for this patient. I have also personally directed, reviewed, and agree with the discharge instructions and disposition.
--- NOTE | 2018-11-24 13:10 | C.PDOC ---
History Of Present Illness 58 y/o female with a PMHx of HTN and DM, presents to the ED complaining of sharp left-sided pleuritic chest pain for the past hour. Pain is constant, however worse with deep inspiration. Of note patient was recently admitted and had cardiac work-up at [facility], and had a failed tress test. States she is due for cardiac cath on (11/27). Patient otherwise denies any SOB, dizziness, visual changes, palpitations, headache, or lightheadedness. On arrival, BP is 200/100. Patient has chronic hypertension, and wears a clonidine patch. Reports compliance with medications. <Bora Milton - Last Filed: 11/24/18 18:50> History Per: Patient History/Exam Limitations: no limitations Onset/Duration Of Symptoms: Hrs (x1) Current Symptoms Are (Timing): Still Present Quality: Sharp Exacerbating Factors: Deep Breathing Alleviating Factors: None Additional History Per: Prior Records <Bora Milton - Last Filed: 11/24/18 18:50> <Heriberto Cain - Last Filed: 11/25/18 16:08> Time Seen by Provider: 11/24/18 11:47 Chief Complaint (Nursing): Chest Pain Past Medical History Reviewed: Historical Data, Nursing Documentation, Vital Signs Vital Signs: Last Vital Signs Temp 98.3 F 11/24/18 11:10 Pulse 81 11/24/18 11:10 Resp 15 11/24/18 11:10 BP 210/100 H 11/24/18 11:10 Pulse Ox 99 11/24/18 13:07 - Medical History PMH: Anemia, Anxiety, Arthritis, Asthma, CHF, Depression, Diabetes, Gastritis, HTN, Hypercholesterolemia, Post Traumatic Stress Disorder, TIA Denies: Hepatitis, Chronic Kidney Disease Surgical History: Endoscopy Denies: Pacemaker - [facility] Procedures CYSTOSCOPY NEC (12/14/13) DX ULTRASOUND-HEART (09/20/14) MONITORING NOS (12/02/97) INSPECTION OF ABDOMINAL WALL, PERC ENDO APPROACH (10/15/15) LAPAROSCOP LYSIS-PERITONEAL ADHES (12/30/13) LAPAROSCOP REMOVE OVARIES/TUBES (12/30/13) LAPAROSCOPIC ROBOTIC ASSISTED PROCEDURE (12/30/13) LEFT HEART CARDIAC CATH (06/24/14) LOW CERVICAL (12/02/97) LT HEART ANGIOCARDIOGRAM (06/24/14) MEDICATION MANAGEMENT (12/10/16) RELEASE LARGE INTESTINE, OPEN APPROACH (10/15/15) RELEASE PERITONEUM, OPEN APPROACH (10/15/15) REMOVAL OF EXTRALUMINAL DEVICE FROM STOMACH, OPEN APPROACH (10/15/15) RETROGRADE PYELOGRAM (12/14/13) UTERINE LES DESTRUCT NEC (12/02/97) Family History: States: Diabetes - Social History Hx Tobacco Use: No Hx Alcohol Use: No Hx Substance Use: No - Immunization History Hx Tetanus Toxoid Vaccination: No Hx Influenza Vaccination: Yes Hx Pneumococcal Vaccination: No <Bora Milton - Last Filed: 11/24/18 18:50> Vital Signs: Last Vital Signs Temp 98.9 F 11/24/18 15:44 Pulse 83 11/24/18 15:44 Resp 15 11/24/18 11:10 BP 150/83 11/24/18 15:44 Pulse Ox 99 11/24/18 18:52 - [facility] Procedures CYSTOSCOPY NEC (12/14/13) DX ULTRASOUND-HEART (09/20/14) MONITORING NOS (12/02/97) INSPECTION OF ABDOMINAL WALL, PERC ENDO APPROACH (10/15/15) LAPAROSCOP LYSIS-PERITONEAL ADHES (12/30/13) LAPAROSCOP REMOVE OVARIES/TUBES (12/30/13) LAPAROSCOPIC ROBOTIC ASSISTED PROCEDURE (12/30/13) LEFT HEART CARDIAC CATH (06/24/14) LOW CERVICAL (12/02/97) LT HEART ANGIOCARDIOGRAM (06/24/14) MEDICATION MANAGEMENT (12/10/16) RELEASE LARGE INTESTINE, OPEN APPROACH (10/15/15) RELEASE PERITONEUM, OPEN APPROACH (10/15/15) REMOVAL OF EXTRALUMINAL DEVICE FROM STOMACH, OPEN APPROACH (10/15/15) RETROGRADE PYELOGRAM (12/14/13) UTERINE LES DESTRUCT NEC (12/02/97) <Heriberto Cain - Last Filed: 11/25/18 16:08> Review Of Systems Constitutional: Negative for: Fever, Sweats, Weakness Eyes: Negative for: Vision Change Cardiovascular: Positive for: Chest Pain. Negative for: Palpitations, Light Headedness Respiratory: Negative for: Shortness of Breath Gastrointestinal: Negative for: Nausea, Vomiting, Abdominal Pain, Diarrhea Musculoskeletal: Negative for: Back Pain Skin: Negative for: Rash Neurological: Negative for: Weakness, Numbness, Headache, Dizziness <Bora Milton Last Filed: 11/24/18 18:50> Physical Exam - Physical Exam Appears: Non-toxic, No Acute Distress, Other (Appears uncomfortable) Skin: Normal Color, Warm, No Diaphoretic Head: Atraumatic, Normacephalic Eye(s): bilateral: Normal Inspection (no scleral icterus), PERRL, EOMI Oral Mucosa: Moist Neck: Normal ROM Chest: Symmetrical, Other (reports increased pain when taking a deep breath) Cardiovascular: Rhythm Regular, No Murmur Respiratory: No Rhonchi, No Stridor, No Wheezing, Other (Lungs clear bilaterally, moving air well)) Gastrointestinal/Abdominal: Soft, No Tenderness, No Distention, No Guarding Back: No CVA Tenderness, No Vertebral Tenderness Extremity: Bilateral: Atraumatic, Normal Color And Temperature, Normal ROM Pulses: Left Radial: Normal, Right Radial: Normal Neurological/Psych: Oriented x3, Normal Cranial Nerves Gait: Steady <Bora Milton Marcus Filed: 11/24/18 18:50> ED Course And Treatment - Laboratory Results Result Diagrams: 11/24/18 12:00 11/24/18 13:08 O2 Sat by Pulse Oximetry: 99 (RA) Pulse Ox Interpretation: Normal - Other Rad CXR X-Ray: Read By Radiologist Interpretation: Accession No. : [id number]. Patient Name / ID : KEVYN ANDERSON / [id number]. Exam Date : 11/24/2018 12:13:02 ( Approved ). Study C omment : Sex / Age : F / 58Y. Creator : Vania Veras MD. Dictator : Vania Veras MD. Reeling Machine Setup Operator : Custom Harvester : Vania Veras MD. Approver2 : Report Date : 11/24/2018 12:27:14. My Comment : . HISTORY: chest pain. COMPARISON: Chest x-ray performed 06/21/18. TECHNIQUE: Chest, one view. FINDINGS: Examination limited by habitus. LUNGS: No focal consolidation. Please note that chest x-ray has limited sensitivity for the detection of pulmonary masses. PLEURA: No significant pleural effusion identified. No definite pneumothorax . CARDIOVASCULAR: Heart size appears top normal. Atherosclerotic calcifications of the aorta. OSSEOUS STRUCTURES: Degenerative changes. VISUALIZED UPPER ABDOMEN: Unremarkable. OTHER FINDINGS: None. IMPRESSION: No focal consolidation. <Bora Milton - Last Filed: 11/24/18 18:50> - Laboratory Results Result Diagrams: 11/24/18 12:00 11/24/18 13:08 Lab Results: PT 12.0 SECONDS (9.7-12.2) 11/24/18 13:08 INR 1.1 11/24/18 13:08 APTT 39 SECONDS (21-34) H 11/24/18 13:08 D-Dimer, Quantitative 1753 ng/mlDDU (0-243) H 11/24/18 13:08 Troponin I < 0.0120 ng/mL (0.00-0.120) 11/24/18 13:08 Total Bilirubin 0.5 mg/dL (0.2-1.3) 11/24/18 13:08 AST 17 U/L (14-36) 11/24/18 13:08 ALT 20 U/L (9-52) 11/24/18 13:08 Alkaline Phosphatase 108 U/L (38-126) 11/24/18 13:08 Total Protein 7.2 g/dL (6.3-8.3) 11/24/18 13:08 Albumin 4.2 g/dL (3.5-5.0) 11/24/18 13:08 Globulin 3.0 gm/dL (2.2-3.9) 11/24/18 13:08 Albumin/Globulin Ratio 1.4 (1.0-2.1) 11/24/18 13:08 Lipase 56 U/L (23-300) 11/24/18 13:08 <Heriberto Cain - Last Filed: 11/25/18 16:08> Medical Decision Making Medical Decision Making: Impression: Left-sided chest pain, history of recent failed stress test Initial Plan: - Labs - EKG - CXR - 325 mg PO Aspirin - 0.4 mg SL NTG - 4 mg IV Morphine - Reassess patient reports complete resolution of her chest pain symptoms. Dr. aOkes consulted by phone and he advised if CTA of chest is normal this patient is to continued with her scheduled cardiac cath in 3 days. <Bora Milton - Last Filed: 11/24/18 18:50> Medical Decision Making: I have reviewed the chart. I was available for consult. I did not see patient. 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 - Scribe Statement The provider has reviewed the documentation as recorded by the Scribkori Milian All medical record entries made by the Scribe were at my direction and personally dictated by me. I have reviewed the chart and agree that the record accurately reflects my personal performance of the history, physical exam, medical decision making, and the department course for this patient. I have also personally directed, reviewed, and agree with the discharge instructions and disposition. <Bora Milton - Last Filed: 11/24/18 18:50>
[2018-11-24 13:22] LABS: ALB/GLOB RATIO 1.4 (1.0-2.1); ALBUMIN 4.2 g/dL (3.5-5.0); ALT/SGPT 20 U/L (9-52); AST/SGOT 17 U/L (14-36); BLOOD UREA NITROGEN 17 mg/dL (7-17); CALCIUM 8.8 mg/dl (8.6-10.4); GFR NON-AFRICAN AMERICAN > 60; LIPASE 56 U/L (23-300)
[2018-11-24 13:33] LABS: INR 1.1
[2018-11-24] MEDS ORDERED: Iodixanol 320 MG/ML 100 ML BOTTLE IV ONE (14:01)
--- NOTE | 2018-11-24 15:00 | CT ---
Date of service: 11/24/2018 CTA chest PE protocol Indication: PE Technique: Contiguous axial images were obtained through the chest with intravenous contrast enhancement. Sagittal and coronal reconstructions were generated and reviewed. This CT exam was performed using 1 or more of the following dose reduction techniques: Automated exposure control, adjustment of the MAA and/or kV according to patient size, and/or use of iterative reconstruction technique. IV contrast: 100 mL Visipaque 320 IV Radiation dose (DLP): 508.31 MGy-cm. Comparison: Chest x-ray performed 11/24/18, CTA chest performed 11/23/16 Findings: Visualized portions of the inferior thyroid gland appears enlarged. The mediastinal and hilar vascular structures appear within normal limits. The heart appears within normal limits of size. No large central or segmental pulmonary embolus evident. Mild subsegmental atelectasis. No focal consolidation. No pleural effusion. No pneumothorax. Limited visualized portions of the upper abdomen appear grossly unremarkable. Degenerative changes of the spine. Impression: No large central or segmental pulmonary embolus identified. Mild subsegmental atelectasis. Included inferior thyroid gland appears enlarged. Correlation with thyroid function tests and outpatient thyroid ultrasound may be considered for further evaluation if indicated.
[2018-11-24 15:45] VITALS: BP 150/83; PULSE 83; TEMP 98.9
[2018-11-24 18:53] VITALS: O2SAT 99
--- NOTE | 2018-11-25 17:20 | CARD ---
APPROVED REPORT Date of service: 11/24/2018 EKG Measurement Heart [id number] OR [id number] <Conclusion> Normal sinus rhythm Moderate voltage criteria for LVH, may be normal variant T wave abnormality, consider lateral ischemia Abnormal ECG
== END 2018-11-24 15:44 | disposition home or self-care (01) ==
LOC: C.ER 11:02
DX: R07.81 Pleurodynia (principal)
CPT/HCPCS: 71045; 71275; 80053; 83690; 84484; 85025; 85378; 85610; 85730; 93005; 96374; 99285; J2270; Q9967

== ENCOUNTER 2019-02-18 12:21 | Outpatient (CLI) | payer OTHER, BC | END 2019-02-18 12:22 | disposition home or self-care (01) | LOC: C.INFCTR 12:22 ==